=== PATIENT | female | born 1955 | race Caucasian/White ===

== ENCOUNTER 2023-03-05 23:55 | Inpatient (IN) | payer MEDICARE, OTHER, SELFPAY ==
[2023-03-05 20:14] VITALS: BP 139/34; BMI 41.9
[2023-03-05 20:15] VITALS: BP 139/34
--- NOTE | 2023-03-05 20:50 | ED.GENMED ---
History of Present Illness
General
Chief Complaint: Musculo-Skeletal Complaint
Source: patient and spouse
Exam Limitations: none
Time Seen by Provider: 03/05/23 20:12
Nursing documentation reviewed up to this point in time: agreed with
Travel History
Have you had any contact with someone who has COVID-19?: No
Do you have any symptoms of coronavirus? Fever > 100 degrees, chills, cough, shortness of breath, sore throat, loss of taste or smell, muscle aches, or headache?: No
History of Present Illness
History of Present Illness:
Patient status post right hip replacement last month, presents to ED secondary to progressively worsening right hip/leg pain with cramping sensation, after completing scheduled home physical therapy. Denies loss of sensation or weakness. Denies
direct trauma. Denies fall. At the recommendation of rehab department, patient proceeded to take her home pain medication without improvement in symptoms.
Past History
Past History
ED Past Medical History: GERD (Hiatal hernia ), HTN, Valvular disease (Heart murmur ), Hypothyroidism and Other (Questionable common bile duct stone status post ERCP done at [place] March 2006 )
ED Past Surgical History: Cardiac (Ventriculoseptal defect repair at age 6 , radiofrequency ablation 2004 ), Cholecystectomy (1986 ) and Gynecological (Hysterectomy 2005 )
Social History
Tobacco: Non-smoker
Alcohol: Occasional
Drug: None
Personal:
Living: with family
Employment: Employed
Review of Systems
Review of Systems
Allergies reviewed?: Yes
All Other Systems: ROS reviewed and negative except as documented in HPI and ROS
Constitutional: Reports no symptoms
: Reports no symptoms
Musculoskeletal: Reports other (hip/leg pain)
Skin: Reports no symptoms
Neurological: Reports no symptoms; Denies weakness or numbness
Phy Exam
Physical Exam
Physical Exam:
Physical Exam
General: moderate painful distress, not acutely ill. afebrile
Head: nc/at. eomi
Neck: supple. no meningeal signs.
Heart: s1/s2 regular rate and rhythm, no murmur. equal radial pulses.
Lungs: no acute respiratory distress. clear bilaterally
Abdomen: normal bowel sounds. not tender. rectal exam (RAMOS Singh, at bedside) : brown stool, heme negative.
Neuro: alert and oriented. no focal neurological deficits
Skin: no rash
Psychiatric: well kept. interactive and cooperative
Extremities: right hip: well healed surgical scar noted with diffuse tenderness to palpation. right knee: limited ROM due to pain, without gross deformity/erythema/swelling/ecchymosis
Course
Orders/Labs/Results
Orders:
Orders
03/05/23 20:47
CR Hip - RT w/wo Pel 2-3 Vw* Urgent
Comment:
Reason For Exam: right hip pain, s/p recent sx
Include a pelvis x-ray?: Yes
03/05/23 20:48
Fentanyl Citrate/Pf [Sublimaze] 50 mcg IV NOW STA
Ondansetron Injectable [Zofran] 4 mg IV NOW STA
03/05/23 20:59
Basic Metabolic Panel Urgent
Complete Blood Count/No Diff Urgent
Ferritin Urgent
Comment: ADD ON
Folate Urgent
Comment: ADD ON
Iron Urgent
Comment: ADD ON
Magnesium Urgent
Total Iron Binding Urgent
Comment: ADD ON
Vitamin B12 Urgent
Comment: ADD ON
03/05/23 21:49
Diazepam [Valium] 2 mg PO NOW STA
03/05/23 22:51
CR Knee- Right 4 Or More View* Urgent
Comment:
Reason For Exam: pain after therapy
03/05/23 22:56
Add On- LAB Urgent
Tests Added?: iron, tibc, ferritin, esr, CRP
03/05/23 22:57
Urinalysis Urgent
Date Specimen was Collected: 03/06/23
Time Specimen was Collected: 13:31
Urine Osmolality Random [Osmolality, Random Urine] Urgent
Date Specimen was Collected: 03/06/23
Time Specimen was Collected: 13:31
Urine Sodium Urgent
Date Specimen was Collected: 03/06/23
Time Specimen was Collected: 13:31
03/05/23 22:58
Acetaminophen [Tylenol] 1,000 mg PO NOW STA
03/05/23 22:59
Add On- LAB Routine
Tests Added?: TSH w/Reflex, folate, vit b12
03/05/23 23:05
Ondansetron Injectable [Zofran] 4 mg IV NOW STA
03/05/23 23:07
Type+Screen Urgent
03/05/23 23:25
Admit/Transfer Patient As Directed
Co-Sign Provider:
Level of Care: Inpatient admission
Assign to:: Medical/Surgical
Physician / Group: Shad
Diagnosis: Hyponatremia, Anemia, Severe Right Hip Pain
Reason for Hospitalization: sodium management, anemia work-up, pain control
Expected length of stay greater than two midnights?: Yes
ELOS- Estimated Length of Stay in days: 3
I certify the patient meets the requirements for IP care: Yes
03/05/23 23:28
Code Status As Directed
Resuscitation Status: Full Code
03/06/23 00:19
Acetaminophen [Tylenol] 650 mg PO Q4HPRN PRN
HYDROmorphone [Dilaudid] 0.5 mg IV Q3HPRN PRN
Ondansetron Injectable [Zofran] 4 mg IV Q6HPRN PRN
diazePAM [Valium Injection] 2 mg IV Q6HPRN PRN
03/06/23 00:19
ORTHOPEDIC CONSULT Routine
Consulting Provider: Ernie Fuentes
Was physician already notified: Yes
Activity As Directed
Activity Level: Out of Bed-Early Mobility
With Assistance
Hemetest Stools As Directed
Comment: Notify MD of any positive result; May Stop is negative x 3
I&O [Intake/ Output] As Directed
Frequency: q12h
Vital Signs As Directed
Frequency: Per unit guidelines
Warm Compress [Heat Application] As Directed
Apply heat therapy device to (location):: right thigh
Device Frequency setting:: 20 minute cycles
Device temperature setting:: Moderate: 100 F (38 C)
Weight As Directed
Frequency: Daily
Ot Eval And Treat Routine
Pt Eval And Treat Routine
Activity Level: Out of Bed-Early Mobility
With Assistance
03/06/23 Breakfast
Sodium, 2 Gram
At Your Request: Full Participation
Fluid Restriction: 1200 mL/day (40 oz)
03/06/23 06:04
Basic Metabolic Panel IN AM
Complete Blood Count/No Diff IN AM
Magnesium IN AM
03/06/23 07:00
Furosemide [Lasix] 20 mg PO DAILY@0700
Levothyroxine [Synthroid] 125 mcg PO DAILY@0700
03/06/23 08:00
Cyanocobalamin [Vitamin B-12] 1,000 mcg PO BID
Docusate Sodium [Colace] 100 mg PO BID
Sennosides [Senokot] 8.6 mg PO DAILY
03/06/23 10:00
Lisinopril [Zestril] 2.5 mg PO DAILY@1000
03/06/23 18:00
Cholecalciferol (Vitamin D3) [VITAMIN D3 (cholecalciferol)] 50 mcg PO QPM
Potassium Chloride [KCl] 20 meq PO QPM
Psyllium [Metamucil, Konsyl] 1 packet PO QPM
03/06/23 22:00
Aspirin Chewable [Low Strength Aspirin] 81 mg PO HS
Atorvastatin [Lipitor] 40 mg PO HS
Abnormal Lab Results
03/05/23 03/05/23
20:59 23:07
RBC 2.53 L 10^6/uL
(4.20-5.40)
Hgb 7.5 L g/dL
(12.0-16.0)
Hct 22.8 L %
(37.0-47.0)
MCHC 32.9 L g/dL
(33.0-37.0)
Sodium 125 L mmol/L
(135-145)
Chloride 95 L mmol/L
(98-107)
Carbon Dioxide 20 L mmol/L
(22-30)
Glucose 149 H mg/dl
(70-99)
Calcium 8.3 L mg/dl
(8.4-10.2)
% Saturation 12 L %
(20-50)
Vitamin B12 > 1000 H pg/ml
(282-931)
Folate > 20.0 H ng/ml
(2.76-20)
Crossmatch IS Only See Detail
03/05/23 20:59
03/05/23 20:59
Vital Signs
Initial and Last Documented VS:
Initial Vital Signs
Temp Pulse Resp BP Pulse Ox
97.7 F 85 28 139/34 100
03/05/23 20:14 03/05/23 20:14 03/05/23 20:14 03/05/23 20:14 03/05/23 20:14
Last Documented Vital Signs
Temp Pulse Resp BP Pulse Ox
98.0 F 81 18 136/70 99
03/08/23 07:00 03/08/23 09:26 03/08/23 07:00 03/08/23 09:26 03/08/23 10:20
MDM/Problems Addressed
MDM/Problems Addressed:
H/H noted along with hyponatremia, without gross evidence of bleeding. However, patient is on Eliquis. Will require further evaluation.
Despite multiple pain medication provided, patient with continual pain with spasm. Patient unable to weight-bear despite use of walker in ED. Patient will require further treatment and is unsafe to be discharged home at this time.
(orthopaedic surgery) notified via [employer].
*Critical Care Note
Total Time (30-74mins, 75-104mins- exclusive of procedures): Not Applicable
ED Attending Note
-
Portions of this chart may have been created with voice recognition software.� Occasional wrong word or��sound alike� substitutions may have occurred due to the inherent limitations of voice recognition software.
Discharge Plan
Departure
Patient Disposition: Admit
Date of Disposition: 03/05/23
Time of Disposition: 23:01
Presentation/result/management discussed w/ accepting MD/DO: Hospitalist
Discharge Problem:
Anemia, intractable leg pain
Interventions
Interventions:
*Risk Screen - Suicide Last Done: 03/05/23 20:14
*General Assessment Last Done: 03/05/23 20:14
*Neglect/Abuse Screening Last Done: 03/05/23 20:14
*ED COVID-19 Vaccine History Last Done: 03/05/23 20:14
ED-Musculoskeletal Assessment Last Done: 03/05/23 20:24
[2023-03-05 21:04] LABS: Hematocrit 22.8 % (37.0-47.0); Hemoglobin 7.5 g/dL (12.0-16.0); Mean Corp Hgb Conc. 32.9 g/dL (33.0-37.0); Mean Corpuscular Hgb 29.6 pg (27.0-31.0); Mean Corpuscular Volume 90.1 fL (81.0-99.0); Mean Platelet Volume 9.4 fL (7.4-10.4); Platelet Count 291 10^3/uL (130-400); Red Blood Cell Count 2.53 10^6/uL (4.20-5.40); Red Cell Dist. Width 13.7 % (11.5-14.5)
[2023-03-05] MEDS: SUBLIMAZE 50 MCG IV (21:05)
[2023-03-05] MEDS: ZOFRAN 4 MG IV ×2 (21:06→23:10)
[2023-03-05 21:31] LABS: Blood Urea Nitrogen 17 mg/dl (7-17); Calcium 8.3 mg/dl (8.4-10.2); Carbon Dioxide 20 mmol/L (22-30); Estimated Creatinine Clearance 116 ml/min; Glucose 149 mg/dl (70-99); Magnesium 1.8 mg/dl (1.6-2.3); eGFR > 60.00
[2023-03-05 21:42] LABS: Chloride 95 mmol/L (98-107); Potassium 3.7 mmol/L (3.5-5.1); Sodium 125 mmol/L (135-145)
[2023-03-05 21:48] VITALS: BP 130/58
[2023-03-05] MEDS: VALIUM 2 MG PO (21:53)
[2023-03-05 22:00] VITALS: BP 126/60
[2023-03-05 23:00] VITALS: BP 141/64
[2023-03-05] MEDS: TYLENOL 1000 MG PO (23:10)
[2023-03-05 23:35] LABS: Iron 42 ug/dl (37-170)
--- NOTE | 2023-03-05 23:42 | HPS.HSE ---
Addendum entered and electronically signed by Jose David Kulkarni DO 03/06/23 00:13:
Patient seen and examined independently. Agree with findings and plan as set forth by Idania Soriano PA-C.
Patient is a 67y F with PMH significant for ASCVD, A-Fib and hypertension who presents to ED complaining of RLE pain. Patient is s/p R GAYLE on 01/24/23. She has been recovering well and participating with PT at home. She denies any fall,
trauma, injury. She was seen by PT at home today. but denies any new exercises / activities. Later in the afternoon she developed sudden onset of sharp, stabbing pain in the R mid thigh extending distally to the knee. Pain was quite severe and
described as a 'spasm'. Patient was unable to control her pain and presented to the ED for evaluation.
Ass:
RLE Pain / Spasm
Blood Loss Anemia
Hyponatremia
ASCVD
Paroxysmal Atrial Fibrillation
Benign Hypertension
Hypothyroidism
ALTHEA on CPAP
Morbid Obesity due to excess calories
Plan:
Admit for further evaluation and treatment.
Imaging studies in the ED are unremarkable.
Symptoms seem c/w spasm of anterior thigh musculature.
Supportive care with pain control, muscle relaxants, heat applications, etc.
Ortho eval in the AM.
PT / OT evaluations.
Fluid restriction, pain control and continue Lasix for hyponatremia.
Follow for improvement.
Follow H&H for changes.
Hold Eliquis acutely. Continue ASA.
Check iron studies and consider iron infusion if warranted.
Original Note:
Family Physician
-
Family Physician: Freedom Connors
Chief Complaint
-
Right hip/thigh pain
History of Present Illness
Patient is a 67 female past medical history of CAD, A-fib, hypertension, hypothyroidism, osteoarthritis status post right total hip replacement on January 24 who presents with severe right hip pain. Patient reports she was doing quite well
following her recent surgery. Today she worked with physical therapy ambulating with a cane. She reports feeling well after surgery and then did some laundry. And then afternoon she developed right thigh pain radiating down to the knee. She
describes it as a spasm. She took 2 doses Dilaudid without any improvement in her symptoms which prompted her come to the emergency department for evaluation. Workup in the emergency department also revealed anemia as well as hyponatremia. In
regards to her anemia patient is maintained on Eliquis. She denies any black or bloody stools, and was noted be heme-negative in the emergency department. In regards to her hyponatremia patient appears to drink about 60 ounces of fluid per day.
Medical History
Past Medical History
Past Medical History: Reports Other
Additional Past Medical History:
Coronary Artery Disease s/p Stent
Paroxysmal Atrial Fibrillation
Essential Hypertension
Hyperlipidemia
Hypothyroidism
GERD
Obstructive Sleep Apnea
Past Surgical History: Reports Other
Additional Past Surgical History:
Bilateral Hip Replacements
Bilateral Knee Replacement
Left Shoulder Replacement
Right Lower Ext ORIF
Giant Cell Tumor Excision
Cholecystectomy
Hysterectomy
Social History
Tobacco: Non-smoker
Alcohol: Occasional
Personal:
Living: With Family ()
Family History
Family History: Not pertinent
Allergies / Home Medications
Allergies reflects when Allergies were last updated in [facility].
Home Medications with original date entered in [facility]
Allergy/Medication List:
Allergies
Allergy/AdvReac Type Severity Reaction Status Date / Time
oxycodone Allergy Nausea Verified 01/24/23 08:10
Home Medications
levothyroxine 125 mcg tablet 125 mcg PO DAILY@0700 Thyroid 08/27/11
psyllium husk (aspartame) 3.4 gram oral powder packet (Metamucil Fiber Singles) 1 packet PO QPM Constipation 01/11/16
atorvastatin 40 mg tablet 40 mg PO HS High cholesterol 05/19/21
cholecalciferol (vitamin D3) 50 mcg (2,000 unit) tablet (Vitamin D3) 50 mcg PO QPM Supplement ##0 05/19/21
cyanocobalamin (vitamin B-12) 1,000 mcg tablet 1,000 mcg PO BID Supplement 05/19/21
multivitamin 1 ea PO DAILY Supplement 05/19/21
potassium chloride 20 mEq tablet,extended release(part/cryst) 20 meq PO QPM Electrolyte Repletion 09/28/21
aspirin 81 mg capsule 81 mg PO HS Blood clot prevention/tx 10/06/21
docusate sodium 100 mg capsule 100 mg PO BID #30 caps 01/25/23
hydromorphone 2 mg tablet 2 mg PO Q4H PRN moderate-severe pain #30 tabs 01/25/23
apixaban 5 mg tablet (Eliquis) 5 mg PO BID@0700,1800 03/05/23
furosemide 20 mg tablet 20 mg PO DAILY@0700 Fluid Retention/Swelling 03/05/23
lisinopril 2.5 mg tablet 2.5 mg PO DAILY@1000 03/05/23
sennosides 8.6 mg tablet (Senna Lax) 8.6 mg PO DAILY 03/05/23
Review of Systems
-
A 12 point ROS was completed and negative except as noted: Yes
Constitutional: Denies Fever or Chills
Respiratory: Denies Cough or Trouble Breathing
Cardiac: Denies Chest Pain or Palpitations
Abdomen/GI: Reports Nausea; Denies Abdominal Pain
Physical Exam
Vital Signs
Vital Signs
Temp Pulse Resp BP Pulse Ox
97.7 F 70 17 141/64 99
03/05/23 20:14 03/05/23 23:15 03/05/23 23:15 03/05/23 23:00 03/05/23 22:45
Physical Exam
General: Comfortable and Conversant
HEENT: Anicteric and Moist mucous membranes
Respiratory: Clear and Non Labored Respirations
Cardiac: S1/S2 and Regular Rhythm
GI: Soft, Non Tender and Non Distended
Rectal: Hem Negative (Per ED Provider)
Musculoskeletal: No Clubbing, No Cyanosis and Other (Right Hip Incision appear clean, dry and intact)
Skin: Warm, Dry and Other (No bruising)
Neuro: Awake, Alert, Oriented and Nonfocal/grossly intact
Laboratory Results
-
03/05/23 20:59
03/05/23 20:59
Data Reviewed
-
Diagnostic Radiology: Report Reviewed by me
Lab Data: Labs Reviewed by me
Impression/Plan
-
Severe Right Hip Pain, possible muscle spasm
-Consult Orthopedics
-Consult PT/OT
-Continue Valium prn muscle spasms
-Continue Dilaudid prn severe pain
Hyponatremia, suspect SIADH related to pain
-Check urine sodium and urine osmolality
-Start fluid restriction
Anemia, suspect iron deficiency following recent hip surgery
-Check iron studies
-Continue to heme-test stools
Coronary Artery Disease s/p Stent
-Continue aspirin
Paroxysmal Atrial Fibrillation
-Hold Eliquis is setting of anemia
Essential Hypertension
-continue lisinopril and furosemide
Hyperlipidemia
-Continue atorvastatin
Hypothyroidism
-Check TSH
-Continue levothyroxine
Obstructive Sleep Apnea
-Continue CPAP
Morbid Obesity Due To Excess Calories
-Affects all affects of care
DVT proph: SCDs
Code Status: Full Code
[2023-03-05 23:44] LABS: Percent Saturation 12 % (20-50); Total Iron Binding Capacity 344 ug/dl (265-497)
[2023-03-06] VITALS (9 sets, daily range): BP systolic 116–143; BP diastolic 48–67; BMI 41.9; BMI 41.3
[2023-03-06 03:06] LABS: Ferritin 57.4 ng/ml (11.1-264.0)
--- NOTE | 2023-03-06 03:06 | EDRN ---
Report received, patient sleeping at this time, call [facility] in reach.
[2023-03-06 03:37] LABS: Folate > 20.0 ng/ml (2.76-20); Vitamin B12 > 1000 pg/ml (239-931)
--- NOTE | 2023-03-06 03:45 | EDRN ---
Patient ambulated with use of walker to the restroom, patient in a lot of pain with ambulation, tearful during transfer to bathroom, she was able to slowly ambulate without difficulty, just with a lot of pain, offered more pain medication once back
in bed, patient reports she feels better once in bed and wanted to hold off for now, informed patient to call if she changes her mind and wants some sort of pain control, no other needs at this time, call [facility] in reach.
--- NOTE | 2023-03-06 06:14 | W.PN.UPDATE ---
Update Note
Progress Note Update
Patient seen and evaluated by orthopedic surgery this morning. Patient reports that she began to experience severe right hip pain, described as spasming, yesterday afternoon around 3 PM. Patient underwent a right total hip replacement performed on
01/24/[address] Fuentes. She had physical therapy yesterday around 8 AM, ambulating with a cane. Prior to the onset of right hip pain and spasming, she reports that she was progressing well with her rehab. Her pain is localized to the right
lateral hip region radiating distally to her right knee. She took 2 doses of Dilaudid without any improvement, at which point she presented to the ED. She denies any injury or traumatic event. She denies any specific back pain. She denies any
numbness or tingling in her right lower extremity. She denies any specific groin pain or right knee pain. Her right knee was replaced in 2018 at [facility]. She is unable to recall the name of the physician, however does describe it was a bone
oncologist. She denies any instability or swelling about the right knee. On encounter this morning, the patient does report that her spasms have significantly improved and are controlled at rest. With movement, she does report increased pain. She
denies any fevers, chills or night sweats. X-rays of the right hip and right knee were obtained. X-rays of the right hip are unremarkable. X-rays of the right knee without findings for acute fracture or dislocation. Patient is afebrile. WBC
within normal limits. Will obtain inflammatory markers including ESR and CRP. Full orthopedic consult note pending.
Discussed with Dr. Fuentes. ESR 19. CRP 32. At this time, continue supportive care with pain control, muscle relaxers, heat applications, etc. Will order CT Scan of right hip w/o contrast for further evaluation. Continue treatment per primary team.
As long as CT is negative, discharge per medicine and case management from orthopedic standpoint.
[2023-03-06] MEDS: DILAUDID 0.5 MG IV ×2 (06:15→09:50)
[2023-03-06 06:25] LABS: Mean Corp Hgb Conc. 33.2 g/dL (33.0-37.0); Mean Corpuscular Volume 90.4 fL (81.0-99.0); Mean Platelet Volume 9.5 fL (7.4-10.4); Platelet Count 290 10^3/uL (130-400); Red Cell Dist. Width 13.7 % (11.5-14.5); White Blood Cell Count 8.4 10^3/uL (4.8-10.8)
[2023-03-06 06:42] LABS: Hematocrit 20.8 % (37.0-47.0); Hemoglobin 6.9 g/dL (12.0-16.0)
[2023-03-06 07:06] LABS: Erythrocyte Sed Rate 19 mm/hour (0-20)
[2023-03-06 07:18] LABS: Blood Urea Nitrogen 17 mg/dl (7-17); Calcium 8.6 mg/dl (8.4-10.2); Carbon Dioxide 23 mmol/L (22-30); Chloride 98 mmol/L (98-107); Estimated Creatinine Clearance 116 ml/min; Glucose 117 mg/dl (70-99); Magnesium 2.1 mg/dl (1.6-2.3); Sodium 129 mmol/L (135-145); eGFR > 60.00
--- NOTE | 2023-03-06 07:44 | CON.ORTHO ---
Consultation
-
Date/Time Consultation Requested: 03/06/2023 @ 00:19
Date/Time Consultation Performed: 03/06/2023 @ 6:00
Requesting Provider: Idania Soriano PA-C
Performing Provider: Dez Kevin PA-C for Dr. Ernie Fuentes
Reason for Consultation: Right Hip/Thigh Pain
Consultation - Orthopedics
History
HPI: The patient is a 67-year-old female with a past medical history significant for CAD, A-fib on Eliquis 5 mg BID, hypertension, hypothyroidism, osteoarthritis s/p right total hip replacement performed on 01/24/[address] Fuentes who presented to
[facility] with severe right hip pain. Patient denies any falls, traumatic injuries, or triggering events. Patient reports that she was doing well following her recent orthopedic surgery and was making appropriate
improvements with physical therapy. She states that she worked with physical therapy yesterday around 8 AM, ambulating with a cane. Around 3 PM, patient reports onset of right hip pain, localized to the anterior and lateral hip/thigh, which
radiated distally towards her right knee. She describes symptoms as a 'spasm,' worse with any movement. She took 2 doses of Dilaudid without significant improvement in her symptoms, which prompted her to report to [facility] ED for further evaluation.
X-rays of the right hip and right knee were obtained, and were unremarkable. Right knee was replaced in 2018 at [place]. She is unable to recall the name of the physician, however was informed that it was an Orthopedic Oncologist. She denies
any back pain or any numbness or tingling in her right lower extremity. She denies any specific groin pain or knee pain. Since coming to the ED, she reports that the spasms have improved and are controlled at rest when she is lying. With movement,
she does report increased pain. She denies any fevers, chills or night sweats. She denies any overt incisional concerns. She denies any incisional drainage. Workup in the ED also revealed anemia as well as hyponatremia. Orthopedic surgery was
consulted regarding management of her right hip/thigh pain.
PAST MEDICAL HISTORY: Coronary Artery Disease s/p stent, Paroxysmal Atrial Fibrillation, Essential Hypertension, Hyperlipidemia, Hypothyroidism, GERD, Sleep apnea on CPAP.
PAST SURGICAL HISTORY: Bilateral hip replacements (R GAYLE 01/24/[address] Fuentes), Bilateral knee replacements, Left shoulder replacement, Right lower extremity ORIF, Giant cell tumor excision, Cholecystectomy, Hysterectomy.
SOCIAL HISTORY: Reports occasional alcohol use. Denies any tobacco use, illicit or recreational drug use. Lives at home with her .
FAMILY HISTORY: Non-contributory.
REVIEW OF SYSTEMS: 12-point review of systems obtained and negative except those mentioned in the HPI.
Allergies / Home Medications
Allergy/AdvReac Type Severity Reaction Status Date / Time
oxycodone Allergy Nausea Verified 01/24/23 08:10
Medication Instructions Recorded
levothyroxine 125 mcg tablet 125 mcg PO DAILY@0700 Thyroid 08/27/11
psyllium husk (aspartame) 3.4 gram 1 packet PO QPM Constipation 01/11/16
oral powder packet (Metamucil
Fiber Singles)
atorvastatin 40 mg tablet 40 mg PO HS High cholesterol 05/19/21
cholecalciferol (vitamin D3) 50 50 mcg PO QPM Supplement ##0 05/19/21
mcg (2,000 unit) tablet (Vitamin
D3)
cyanocobalamin (vitamin B-12) 1,000 mcg PO BID Supplement 05/19/21
1,000 mcg tablet
multivitamin 1 ea PO DAILY Supplement 05/19/21
potassium chloride 20 mEq 20 meq PO QPM Electrolyte Repletion 09/28/21
tablet,extended release(part/cryst)
aspirin 81 mg capsule 81 mg PO HS Blood clot 10/06/21
prevention/tx
docusate sodium 100 mg capsule 100 mg PO BID #30 caps 01/25/23
hydromorphone 2 mg tablet 2 mg PO Q4H PRN moderate-severe 01/25/23
pain #30 tabs
apixaban 5 mg tablet (Eliquis) 5 mg PO BID@0700,1800 03/05/23
furosemide 20 mg tablet 20 mg PO DAILY@0700 Fluid 03/05/23
Retention/Swelling
lisinopril 2.5 mg tablet 2.5 mg PO DAILY@1000 03/05/23
sennosides 8.6 mg tablet (Senna 8.6 mg PO DAILY 03/05/23
Lax)
Vital Signs / Lab Results
Temp Pulse Resp BP Pulse Ox
97.8 F 75 18 141/48 99
03/06/23 00:36 03/06/23 00:36 03/05/23 23:20 03/06/23 03:42 03/06/23 03:42
03/06/23 06:04
03/06/23 06:04
Pertinent labs:
ESR: 19
CRP: 32
Hgb: 6.9
RADIOGRAPHIC FINDINGS:
CR Hip - RT w/wo Pel 2-3 Vw was obtained at [facility] on 03/05/2023 and was made available for my review today. Findings: Bilateral total hip arthroplasty hardware appears intact and well-positioned. Both femoral prosthesis are
transfixed by cerclage wires. No acute fracture or dislocation. The bony pelvis is intact. Chronic degenerative changes of the lower lumbar spine and symphysis pubis. Impression: 1. No acute fracture or dislocation. 2. Intact bilateral total
hip arthroplasties without radiographic evidence for complication.
CR Knee - Right 4 or More Vw was obtained at [facility] on 03/05/2023 and was made available for my review today. Findings: A three-part right knee prosthetic is identified, components in expected position. No abnormal soft tissue
calcification seen. No displaced fracture or dislocation is appreciated. Small suprapatellar joint effusion. No significant periosteal reaction. Impression: Small suprapatellar joint effusion. No fracture or dislocation of the prosthetic.
CT Lower Ext w/o IV contrast was obtained at [facility] on 03/06/2023 and was made available for my review today. Findings: Patient is post bilateral total hip replacement as seen on recent prior radiographs. There are artifacts related
to the prostheses. Bilaterally, femoral and acetabular portions of the prosthesis are in expected position without abnormal prosthetic lucency. There is oblique predominantly vertically oriented fracture through the right iliac bone along the
posterior, superior aspect of the acetabular cup. Fracture is nondisplaced and there is some apparent mild callus formation compatible with subacute fracture. There is cortical irregularity along the ischial spine on the right which probably
represents fracture. In addition to this, there is fracture is nondisplaced along the anterior right acetabulum. There is more conspicuous on the coronal reformat. This fracture shows some sclerotic changes also suggesting subacute fracture. No
other acute fractures are identified. Pubic symphysis is congruent. The sacroiliac joints are maintained. There is L5 probable spinal listhesis with grade 1 spondylolisthesis L5 on S1. Visible bowel sounds and no signs of obstruction. Probably
just are not well-seen secondary to artifact. Within the limitations, no acute abnormality of the urinary bladder is identified. Uterus is not clearly seen. No abnormality of the rectum is identified. No free fluid is seen within the pelvis.
Impression: Subacute fractures along the anterior right acetabulum and posterior, superior right acetabulum as described. Probable of acute fracture of the right ischial spine. CT scan was also reviewed by Dr. Fuentes.
PHYSICAL EXAM:
General: Well-developed, well-nourished male in no acute distress. AAO x 3.
HEENT: NCAT, sclera anicteric, normal conversational hearing.
Heart: No JVD.
Lungs: Normal work of breathing on room air.
MSK: Physical examination of the right lower extremity with attention to the right hip reveals a well-approximated healed surgical incision over the lateral hip. There is some scab formation noted about the proximal aspect of the incision. There
is no erythema or drainage. There is no ecchymosis. No significant warmth in comparison to the contralateral side. There is tenderness to palpation over the soft tissues about the anterior thigh, specifically in the region of the adductor and
quadriceps musculature. No significant reproducible tenderness to palpation over the lateral hip. No reproducible tenderness to palpation about the right knee. There is a well-healed surgical incision overlying the right knee with no erythema,
warmth, or ecchymosis. There is increased pain to the right hip with logrolling maneuver. Mild pain reproduced only to the right hip with gentle passive knee range of motion. Further range of motion of the right hip unable to be performed
secondary to muscular spasming and pain. Patient is able to demonstrate active range of motion of the right ankle with plantarflexion and dorsiflexion. EHL intact. Patient able to wiggle her toes. Sensation is intact to light touch throughout
the right lower extremity. Calf is soft and nontender to palpation. Patient is neurovascularly intact about the right lower extremity.
Assessment / Plan
ASSESSMENT: 67-year-old female with right hip/thigh pain/muscular spasms. History of recent right GAYLE performed on 01/24/2023.
PLAN: CT Scan of the right hip was reviewed with Dr. Fuentes. Regarding the findings, it is unclear if the mechanism would have been a fracture during wedging in of the acetabular component or a stress fracture mechanism from activity
post-operatively, however would favor possible stress mechanism considering she was progressing well without increased pain until yesterday afternoon. Regardless, it would not change treatment. Patient also has significant anemia, not obviously
explainable on the CT scan of the hip, and her muscular spasms may be secondary to this. The patient may continue weightbearing as tolerated through the right lower extremity with assistance. Continue treatment and supportive care with pain
control, muscle relaxers, heat applications, etc. per the primary team. Orthopedic surgery will continue to follow along at this time.
[2023-03-06] MEDS: COLACE 100 MG PO ×2 (07:45→20:51)
[2023-03-06] MEDS: VITAMIN B-12 1000 MCG PO ×2 (07:45→20:51)
[2023-03-06] MEDS: LASIX 20 MG PO (07:45)
[2023-03-06] MEDS: SENOKOT 8.59999999999999964 MG PO (07:45)
--- NOTE | 2023-03-06 08:55 | PTCARENOTE ---
pt aaox3. states pain in right hip and down leg when moving. at rest pt is comfortable. room air. breath sounds clear. right upper leg +1 swelling. right hip wound alex clean.
--- NOTE | 2023-03-06 09:02 | W.PN.HOSP.TC ---
Today's Communication/Plan
-
see outlined plan
Assessment / Plan
Assessment / Plan
Assessment:
Severe Right Hip Pain, possible muscle spasm
- Orthopedics following
- Xray imaging negative, CT pending
- maximize Tylenol to 1g TID, make Flexeril available BID prn
- PO Dilaudid for severe pain (nausea documented with Oxycodone)
- would try to limit/avoid Valium moving forward
- PT/OT
Hyponatremia, suspect SIADH related to pain
- await Urine Osm, Serum Osm, Urine Na
- continue OFR
- resume Lasix in 24 hours
Acute blood loss anemia, and iron deficiency following recent hip surgery
- heme-test stools, no historical report of GI bleed
- 1 unit PRBCs ordered
- later will plan iron therapy
Coronary Artery Disease s/p Stent
- continue aspirin
Paroxysmal Atrial Fibrillation
- hold Eliquis is setting of anemia
Essential Hypertension
- continue lisinopril and furosemide
Hyperlipidemia
- continue atorvastatin
Hypothyroidism
- check TSH
- continue levothyroxine
Obstructive Sleep Apnea
- continue CPAP
Morbid Obesity Due To Excess Calories
- affects all affects of care
DVT proph: SCDs
Code Status: Full Code
Anticipated Discharge: 24 - 48 hours
Subjective/Interval History
-
Date of Service: March 06, 2023
she reports hip spasms are improving
pain minimal
no other complaints, no fever/chills
Anemic to Hb 6.9, no evidence of bleeding noted by patient, no prior anemia hx
Objective Data
-
Labs:
Laboratory Results
03/05/23 03/06/23
20:59 06:04
WBC 10.0 8.4
Hgb 7.5 L 6.9 L*
Hct 22.8 L 20.8 L*
Plt Count 291 290
Sodium 125 L 129 L
Potassium 3.7 4.0
Chloride 95 L 98
Carbon Dioxide 20 L 23
BUN 17 17
Creatinine 0.6 0.6
Glucose 149 H 117 H
Calcium 8.3 L 8.6
Vital Signs:
Vital Signs
Temp Pulse Resp BP Pulse Ox
98.0 F 72 18 116/49 97
03/06/23 08:06 03/06/23 08:06 03/06/23 08:06 03/06/23 08:06 03/06/23 08:06
Physical Exam
-
General: No Apparent Distress
HEENT: Normocephalic and Atraumatic
Respiratory: Negative Wheezes
Cardiac: Regular Rhythm and S1/S2
GI: Soft
Genito-urinary: No Costovertebral Tender
Musculoskeletal: No Edema and Other (R hip incision c/d/i)
Neuro: AO x 3
Hematologic / Lymphatic: No Lymphadenopathy
Psych: Calm
Data Reviewed
-
Total Time Spent with Patient (in minutes): 47
Labs: Labs Reviewed by me
--- NOTE | 2023-03-06 09:17 | PTCARENOTE ---
morning labs reported to dr lynn. prbc ordered.
--- NOTE | 2023-03-06 09:23 | VNURNOTE ---
Patient is current with [facility] since 01/26 w/SN/PT, will monitor progress and plan at discharge.
[2023-03-06] MEDS: ZOFRAN 4 MG IV ×2 (09:49→16:19)
[2023-03-06] MEDS: TYLENOL PO (10:47)
[2023-03-06] MEDS: ZESTRIL PO (10:47)
[2023-03-06] MEDS: SYNTHROID PO (10:47)
--- NOTE | 2023-03-06 10:50 | PTCARENOTE ---
pt states 10/10 pain in right hip after ct scan transport and feeling nauseous. Dilaudid and zofran given. pt did vomit shortly after. and does not want to eat or take pills. after event prbc started
--- NOTE | 2023-03-06 11:27 | W.PN.UPDATE ---
Update Note
Progress Note Update
I reviewed both the images and report of her CT scan showing acetabular fracture. Not clear if the mechanism would have been a fracture during wedging in of the acetabular component of the total hip or a stress fracture mechanism from activity
postop but that information wouldn't change managment. HEr acetabular shell is well fixed appering, secured with screws, and protects any of these fx's from displacement. There is sign of callus formation. She can continue weightbearing as
tolerated through the right lower extremity. Unclear what the source is over her significant anemia, I do not see an explanation on the ct with the hip.
[2023-03-06 13:49] LABS: Urine Albumin Negative (Neg - Trace); Urine Bilirubin Negative (Negative); Urine Character Clear (Clear); Urine Color Yellow; Urine Glucose Negative (Negative); Urine Ketone Negative (Negative); Urine Leukocyte Trace (Negative); Urine Nitrite Negative (Negative); Urine Occult Blood Negative (Negative); Urine Specific Gravity 1.025 (<1.030); Urine Urobilinogen Negative (Neg - 1+)
[2023-03-06 14:24] LABS: Urine Mucus Moderate
[2023-03-06 14:25] LABS: Urine Bacteria Few (Negative); Urine Red Blood Cell 0-2 /HPF (0-2)
[2023-03-06 14:36] LABS: Osmolality Urine 441 mOsm/kg (300-900)
[2023-03-06 15:20] LABS: Osmolality Serum 268 mOsm/kg (275-300)
--- NOTE | 2023-03-06 15:23 | PTCARENOTE ---
report sent to floor pt transferred to 4th floor with belongings cell phone and home cpap.
[2023-03-06 16:12] LABS: Urine Sodium 7 mmol/L (30-90)
[2023-03-06] MEDS: TYLENOL 1000 MG PO ×2 (16:18→20:53)
[2023-03-06] MEDS: KCL 20 MEQ PO (17:39)
[2023-03-06] MEDS: VITAMIN D3 (cholecalciferol) 50 MCG PO (17:39)
[2023-03-06] MEDS: METAMUCIL, KONSYL 1 PACKET PO (17:40)
--- NOTE | 2023-03-06 19:14 | PTCARENOTE ---
Recieved Pt form ED. AAOx4. Assisted with transfer from stretcher to bed. Oriented to the unit.
[2023-03-06] MEDS: LIPITOR 40 MG PO (20:52)
[2023-03-06] MEDS: LOW STRENGTH ASPIRIN 81 MG PO (20:53)
[2023-03-07 06:00] VITALS: BMI 40.1
[2023-03-07] MEDS: SYNTHROID 125 MCG PO (06:26)
[2023-03-07] MEDS: LASIX 20 MG PO (06:26)
[2023-03-07 08:00] LABS: Hematocrit 24.5 % (37.0-47.0); Mean Corp Hgb Conc. 33.9 g/dL (33.0-37.0); Mean Corpuscular Hgb 30.6 pg (27.0-31.0); Mean Corpuscular Volume 90.4 fL (81.0-99.0); Mean Platelet Volume 9.6 fL (7.4-10.4); Platelet Count 296 10^3/uL (130-400); Red Blood Cell Count 2.71 10^6/uL (4.20-5.40); Red Cell Dist. Width 14.6 % (11.5-14.5); White Blood Cell Count 7.1 10^3/uL (4.8-10.8)
[2023-03-07 08:22] LABS: Hemoglobin 8.3 g/dL (12.0-16.0)
[2023-03-07 08:31] VITALS: BP 133/62
[2023-03-07 08:40] VITALS: BP 124/61; PULSE 79; O2SAT 97
--- NOTE | 2023-03-07 08:48 | W.PN.HOSP.TC ---
Today's Communication/Plan
-
PT/OT
resume Eliquis/Lasix
trial oxycodone
Assessment / Plan
Assessment / Plan
Assessment:
Severe Right Hip Pain, possible muscle spasm
- Orthopedics following
- Xray imaging negative
- maximize Tylenol to 1g TID, make Flexeril available BID prn
- re-attempt PO oxycodone
- would try to limit/avoid Dilaudid/Valium moving forward
- PT/OT recs pending
Subacute fractures along anterior right acetabulum and posterior, superior right acetabulum as described. Probable of acute fracture of the right ischial spine.
- non-operative mgmt per orthopedics
- WBAT RLE
Hyponatremia, suspect SIADH related to pain
- continue OFR
- resume Lasix today
Acute blood loss anemia, and iron deficiency following recent hip surgery
- heme-test stools, no historical report of GI bleed
- s/p 1 unit PRBCs. Hb 8.3
- IV iron ordered; with PO iron at dc and PCP f/u in 1-2 months with repeat levels
Coronary Artery Disease s/p Stent
- continue aspirin
Paroxysmal Atrial Fibrillation
- resume Eliquis
Essential Hypertension
- continue lisinopril and furosemide
Hyperlipidemia
- continue atorvastatin
Hypothyroidism
- check TSH
- continue levothyroxine
Obstructive Sleep Apnea
- continue CPAP
Morbid Obesity Due To Excess Calories
- affects all affects of care
DVT proph: Eliquis
Code Status: Full Code
Anticipated Discharge: 24 - 48 hours
Subjective/Interval History
-
Date of Service: March 07, 2023
pain improving
denies any new complaints
will attempt Oxycodone instead of Dilaudid
Objective Data
-
Labs:
Laboratory Results
03/07/23
07:06
WBC 7.1
Hgb 8.3 L D
Hct 24.5 L
Plt Count 296
Sodium Pending
Potassium Pending
Chloride Pending
Carbon Dioxide Pending
BUN Pending
Creatinine Pending
Glucose Pending
Calcium Pending
Vital Signs:
Vital Signs
Temp Pulse Resp BP Pulse Ox
98.1 F 81 18 133/62 96
03/07/23 08:31 03/07/23 08:31 03/07/23 08:31 03/07/23 08:31 03/07/23 08:31
I&O
03/06/23 03/07/23 03/08/23
06:59 06:59 06:59
Intake Total 730 / 730
Balance 730 / 730
Physical Exam
-
General: No Apparent Distress
HEENT: Normocephalic and Atraumatic
Respiratory: Negative Wheezes
Cardiac: Regular Rhythm
GI: Soft
Genito-urinary: No Costovertebral Tender
Musculoskeletal: No Edema
Neuro: AO x 3
Hematologic / Lymphatic: No Lymphadenopathy
Psych: Calm
Data Reviewed
-
Total Time Spent with Patient (in minutes): 40
Labs: Labs Reviewed by me
[2023-03-07 09:03] LABS: Blood Urea Nitrogen 14 mg/dl (7-17); Calcium 8.7 mg/dl (8.4-10.2); Carbon Dioxide 25 mmol/L (22-30); Chloride 102 mmol/L (98-107); Estimated Creatinine Clearance 97 ml/min; Glucose 97 mg/dl (70-99); Potassium 4.1 mmol/L (3.5-5.1); Sodium 134 mmol/L (135-145); eGFR > 60.00
[2023-03-07 09:15] VITALS: BP 124/61; PULSE 79; O2SAT 97
[2023-03-07] MEDS: TYLENOL 1000 MG PO ×3 (09:57→21:29)
[2023-03-07] MEDS: COLACE 100 MG PO ×2 (09:57→20:28)
[2023-03-07] MEDS: VITAMIN B-12 1000 MCG PO ×2 (09:57→20:29)
[2023-03-07] MEDS: ZESTRIL 2.5 MG PO (10:00)
[2023-03-07] MEDS: SENOKOT PO (10:05)
--- NOTE | 2023-03-07 10:05 | W.PN.UPDATE ---
Update Note
Progress Note Update
Per Dr. Fuentes, patient may continue weight bearing as tolerated. She may utilize assistive device such as walker or cane to offload weight from the joint. Orthopedics will follow peripherally. We will see her on an outpatient basis as scheduled.
Continue pain control per primary. Discharge once medically stable.
[2023-03-07] MEDS: FERRLECIT 110 MG IV (14:32)
[2023-03-07 16:27] VITALS: BP 131/59
--- NOTE | 2023-03-07 17:13 | CM ---
CM following re: d/c planning
Chart reviewed
CM met with the patient at bedside; IA completed
Pt states she & her spouse reside in a [place] with 1STE
[employer]ACH[employer] patient reports independence at baseline
Pt has no previous SNF hx, is current with [facility] and has the follow DME: a r/w, w/c. spc, & hip kit
Pt has prescription coverage and rx's are filled at [facility] on [address]
Pt PCP-[facility]
Per PT/OT evals. post d/c recommendation wavers btwn home with PT vs SNF
CM will continue to monitor patient progress and assist with continued needs at d/c as indicated
PLAN; d/c home with PIPPA [facility] vs SNF
[2023-03-07] MEDS: VITAMIN D3 (cholecalciferol) 50 MCG PO (17:19)
[2023-03-07] MEDS: METAMUCIL, KONSYL 1 PACKET PO (17:19)
[2023-03-07] MEDS: ELIQUIS 5 MG PO (17:19)
[2023-03-07] MEDS: KCL 20 MEQ PO (17:20)
[2023-03-07] MEDS: LOW STRENGTH ASPIRIN 81 MG PO (20:29)
[2023-03-07] MEDS: SENOKOT 8.59999999999999964 MG PO (20:29)
[2023-03-07] MEDS: LIPITOR 40 MG PO (20:29)
[2023-03-07 23:47] VITALS: BP 121/69
[2023-03-08 04:49] VITALS: BMI 40.1
[2023-03-08] MEDS: ELIQUIS 5 MG PO (06:10)
[2023-03-08] MEDS: SYNTHROID 125 MCG PO (06:10)
[2023-03-08] MEDS: LASIX 20 MG PO (06:10)
[2023-03-08 07:00] VITALS: BP 136/70
[2023-03-08 08:21] LABS: Hematocrit 27.3 % (37.0-47.0); Hemoglobin 8.8 g/dL (12.0-16.0)
[2023-03-08 08:54] LABS: Blood Urea Nitrogen 17 mg/dl (7-17); Carbon Dioxide 27 mmol/L (22-30); Chloride 103 mmol/L (98-107); Estimated Creatinine Clearance 97 ml/min; Glucose 107 mg/dl (70-99); Sodium 135 mmol/L (135-145); eGFR > 60.00
--- NOTE | 2023-03-08 09:06 | W.PN.HOSP.TC ---
Today's Communication/Plan
-
repeat therapy evaluations with potential DC later if cleared for home
Assessment / Plan
Assessment / Plan
Assessment:
Severe Right Hip Pain, possible muscle spasm
- Orthopedics following
- Xray imaging negative
- maximize Tylenol to 1g TID, make Flexeril available BID prn
- Prn Oxycodone and Prn Tramadol available
- would try to limit/avoid Dilaudid/Valium moving forward
- PT/OT - home vs SNF pending evals
Subacute fractures along anterior right acetabulum and posterior, superior right acetabulum as described. Probable of acute fracture of the right ischial spine.
- non-operative mgmt per orthopedics
- WBAT RLE
Hyponatremia, suspect SIADH related to pain
- continue Lasix
- continue OFR
Acute blood loss anemia, and iron deficiency following recent hip surgery
- heme-test stools, no historical report of GI bleed
- s/p 1 unit PRBCs. Hb 8.8
- IV iron ordered; with PO iron at dc and PCP f/u in 1-2 months with repeat levels
Coronary Artery Disease s/p Stent
- continue aspirin
Paroxysmal Atrial Fibrillation
- resume Eliquis
Essential Hypertension
- continue lisinopril and furosemide
Hyperlipidemia
- continue atorvastatin
Hypothyroidism
- check TSH
- continue levothyroxine
Obstructive Sleep Apnea
- continue CPAP
Morbid Obesity Due To Excess Calories
- affects all affects of care
DVT proph: Eliquis
Code Status: Full Code
Anticipated Discharge: Within 24 hours
Subjective/Interval History
-
Date of Service: March 08, 2023
denies any significant pain while using Tylenol but admits to not mobilizing much after yesterdays therapy session
Objective Data
-
Labs:
Laboratory Results
03/08/23 03/08/23
07:53 07:54
Hgb 8.8 L
Hct 27.3 L
Sodium 135
Potassium 4.0
Chloride 103
Carbon Dioxide 27
BUN 17
Creatinine 0.7
Glucose 107 H
Calcium 9.0
Vital Signs:
Vital Signs
Temp Pulse Resp BP Pulse Ox
98.0 F 81 18 136/70 99
03/08/23 07:00 03/08/23 07:00 03/08/23 07:00 03/08/23 07:00 03/08/23 07:00
I&O
03/07/23 03/08/23 03/09/23
06:59 06:59 06:59
Intake Total 730 / 730 480 / 480
Balance 730 / 730 480 / 480
Physical Exam
-
General: No Apparent Distress
HEENT: Normocephalic and Atraumatic
Respiratory: Negative Wheezes
Cardiac: Regular Rhythm
GI: Soft
Genito-urinary: No Costovertebral Tender
Musculoskeletal: No Edema
Neuro: AO x 3
Hematologic / Lymphatic: No Lymphadenopathy
Psych: Calm
Data Reviewed
-
Total Time Spent with Patient (in minutes): 45
Labs: Labs Reviewed by me
[2023-03-08] MEDS: VITAMIN B-12 1000 MCG PO (09:26)
[2023-03-08] MEDS: COLACE 100 MG PO (09:26)
[2023-03-08] MEDS: ZESTRIL 2.5 MG PO (09:26)
[2023-03-08] MEDS: SENOKOT 8.59999999999999964 MG PO (09:26)
[2023-03-08] MEDS: TYLENOL 1000 MG PO ×2 (09:26→16:14)
[2023-03-08] MEDS: ULTRAM 50 MG PO (12:01)
[2023-03-08 13:01] VITALS: BP 121/55; PULSE 78
[2023-03-08] MEDS: FLEXERIL 5 MG PO (13:42)
[2023-03-08] MEDS: FERRLECIT 110 MG IV (13:43)
--- NOTE | 2023-03-08 13:54 | W.DS.TRANS ---
DC Summary - [employer]
-
Discharge Instructions:
Discharge Diagnosis/Procedures hip pain, muscle spasms, subacute pelvic
fractures
Diet Regular,Restrict fluids to 48 oz
Additional Diets restrict fluids for 1 week, this will help
stabilize sodium levels which can drop in
setting of fractures and acute pain
Activity As tolerated
Bathing Restrictions None
Other Services VN,PT,OT
Instructions:
Stand-Alone Forms:
Changes to Home Medications: Yes
Discharge Medications:
DC Medications w/original date entered in [employer]
levothyroxine 125 mcg tablet 125 mcg PO DAILY@0700 Thyroid 08/27/11
psyllium husk (aspartame) 3.4 gram oral powder packet (Metamucil Fiber Singles) 1 packet PO QPM Constipation 01/11/16
atorvastatin 40 mg tablet 40 mg PO HS High cholesterol 05/19/21
cholecalciferol (vitamin D3) 50 mcg (2,000 unit) tablet (Vitamin D3) 50 mcg PO QPM Supplement ##0 05/19/21
cyanocobalamin (vitamin B-12) 1,000 mcg tablet 1,000 mcg PO BID Supplement 05/19/21
multivitamin 1 ea PO DAILY Supplement 05/19/21
potassium chloride 20 mEq tablet,extended release(part/cryst) 20 meq PO QPM Electrolyte Repletion 09/28/21
aspirin 81 mg capsule 81 mg PO HS Blood clot prevention/tx 10/06/21
docusate sodium 100 mg capsule 100 mg PO BID #30 caps 01/25/23
apixaban 5 mg tablet (Eliquis) 5 mg PO BID@0700,1800 03/05/23
furosemide 20 mg tablet 20 mg PO DAILY@0700 Fluid Retention/Swelling 03/05/23
lisinopril 2.5 mg tablet 2.5 mg PO DAILY@1000 Blood Pressure 03/05/23
sennosides 8.6 mg tablet (Senna Lax) 8.6 mg PO DAILY Constipation 03/05/23
acetaminophen 500 mg tablet (Pain Relief Extra Strength (acetaminophen)) 1,000 mg PO TID #100 tabs 03/08/23
cyclobenzaprine 10 mg tablet 5 mg PO TIDPRN PRN muscle spasms #30 tabs 03/08/23
ferrous sulfate 325 mg (65 mg iron) tablet (FeroSul) 325 mg PO DAILY #100 tabs 03/08/23
sennosides 8.6 mg tablet (Senna Lax) 8.6 mg PO BID #100 tabs 03/08/23
tramadol 50 mg tablet 50 mg PO Q6HPRN PRN moderate pain #30 tabs 03/08/23
Home Medication Changes
dilaudid stopped
Pending Results: No
Total time spent discharging patient (in min): 41
[2023-03-08 15:00] VITALS: BP 128/62
--- NOTE | 2023-03-08 15:13 | VNURNOTE ---
[facility] resumption of care completed in Care Port after review of chart and discussion with patient. Patient confirmed having [facility] contact number.
--- NOTE | 2023-03-08 15:32 | CM ---
CM following re: d/c planning
Chart reviewed
Pt is medically stable for d/c
Pt is set up with [facility] and the clinical liaison placed the PIPPA in care port
IMM was reviewed and copy provided
Pt confirmed transport home
No additional d/c needs identified
PLAN; d/c home with [facility]
== END 2023-03-08 16:48 | disposition home health service (06) | DRG 543 ==
LOC: 4 EAST ACU 23:55
PROVIDERS: Physician Assistant Medical; Student in an Organized Health Care Education/Training Program; ADMITTING PHYSICIAN Hospitalist; ATTENDING PHYSICIAN Internal Medicine; CONSULT PHYSICIAN Orthopaedic Surgery; EMERGENCY PHYSICIAN Emergency Medicine; FAMILY PHYSICIAN Family Medicine
PROC: 30233N1 Transfusion of Nonautologous Red Blood Cells into Peripheral Vein, Percutaneous Approach (ICD-10-PCS; 2023-03-06)
DX: M80.0B1A Age-related osteoporosis with current pathological fracture, right pelvis, initial encounter for fracture (principal); D62 Acute posthemorrhagic anemia; E22.2 Syndrome of inappropriate secretion of antidiuretic hormone; Z68.41 Body mass index [BMI] 40.0-44.9, adult; M25.551 Pain in right hip; I25.10 Atherosclerotic heart disease of native coronary artery without angina pectoris; I10 Essential (primary) hypertension; I48.0 Paroxysmal atrial fibrillation; Z79.01 Long term (current) use of anticoagulants; E03.9 Hypothyroidism, unspecified; Z96.641 Presence of right artificial hip joint; K21.9 Gastro-esophageal reflux disease without esophagitis; D64.9 Anemia, unspecified; E66.01 Morbid (severe) obesity due to excess calories; G47.33 Obstructive sleep apnea (adult) (pediatric); M62.838 Other muscle spasm; D50.9 Iron deficiency anemia, unspecified; Z95.5 Presence of coronary angioplasty implant and graft
CPT/HCPCS: 73502; 73564; 73700; 80048; 81003; 81015; 82607; 82728; 82746; 83540; 83550; 83735; 83930; 83935; 84300; 85014; 85018; 85027; 85652; 86140; 86850; 86900; 86901; 86920; 96374; 96375; 97162; 97166; 97530; 97535; 99285; J2916; P9016

== ENCOUNTER → 2023-05-03 12:09 | Outpatient (REF) | payer MEDICARE, OTHER, SELFPAY | LOC: WDC 12:09 | PROVIDERS: ATTENDING PHYSICIAN Family Medicine | DX: Z12.31 Encounter for screening mammogram for malignant neoplasm of breast (principal) | CPT/HCPCS: 77063; 77067 ==

== ENCOUNTER 2023-08-10 11:00 | Inpatient (IN) | payer MEDICARE, OTHER, SELFPAY ==
[2023-08-09 23:22] VITALS: BP 154/108
[2023-08-09 23:45] VITALS: BP 152/90
[2023-08-09 23:46] VITALS: BMI 41.3
[2023-08-10] VITALS (32 sets, daily range): BP systolic 100–164; BP diastolic 46–111; BMI 39.8
[2023-08-10] LABS: % Basophils 0.3 % (0-2); % Eosinophils 1.9 % (0-6); % Immature Granulocytes 0.4 % (0-0.5); % Lymphocytes 16.9 % (20.5-51.1); % Monocytes 8.3 % (1.7-9.3); % Neutrophils 72.2 % (42.2-75.2); Absolute Eosinophils 0.2 10^3/uL (0-0.7); Absolute Lymphocytes 1.8 10^3/uL (1.2-3.4); Absolute Monocytes 0.9 10^3/uL (0.1-0.6); Absolute Neutrophils 7.7 10^3/uL (1.4-6.5); Hematocrit 38.4 % (37.0-47.0); Mean Corp Hgb Conc. 33.9 g/dL (33.0-37.0); Mean Corpuscular Hgb 30.6 pg (27.0-31.0); Mean Corpuscular Volume 90.4 fL (81.0-99.0); Nucleated Red Blood Cells % 0 %; Platelet Count 236 10^3/uL (130-400); Red Blood Cell Count 4.25 10^6/uL (4.20-5.40); Red Cell Dist. Width 13.5 % (11.5-14.5); White Blood Cell Count 10.6 10^3/uL (4.8-10.8)
[2023-08-10] MEDS: NSS 1000 IV (00:19)
[2023-08-10 00:20] LABS: ALT (SGPT) 17 U/L (0-35); AST (SGOT) 28 U/L (14-36); Albumin 4.4 g/dl (3.5-5.0); Alkaline Phosphatase 86 U/L (38-126); Blood Urea Nitrogen 21 mg/dl (7-17); Calcium 9.6 mg/dl (8.4-10.2); Carbon Dioxide 30 mmol/L (22-30); Chloride 103 mmol/L (98-107); Estimated Creatinine Clearance 88 ml/min; Glucose 134 mg/dl (70-99); Potassium 4.9 mmol/L (3.5-5.1); Sodium 139 mmol/L (135-145); Total Bilirubin 0.5 mg/dl (0.2-1.3); Total Protein 6.8 g/dl (6.3-8.2); eGFR > 60.00
[2023-08-10] MEDS: CARDIZEM 125 IV (00:38)
[2023-08-10] MEDS: CARDIZEM 25 MG IV (00:38)
--- NOTE | 2023-08-10 00:57 | ED.GENMED ---
History of Present Illness
<Mihai Gonzales DO - Last Filed: 08/10/23 05:34>
General
Chief Complaint: Cardiac Symptoms
Source: patient
Exam Limitations: none
Time Seen by Provider: 08/09/23 23:57
Nursing documentation reviewed up to this point in time: agreed with
History of Present Illness
History of Present Illness:
This a pleasant 67-year-old female who presents with irregular heart rate and palpitations. She states that she has been in and out of atrial fibrillation since 1 AM. She does have left jaw tightness and left shoulder pain. Denies fever, chills,
nausea or vomiting. Patient does have a history of A-fib but she is on Eliquis. She states that she has not missed a dose. She does sleep with a CPAP. She reports that sometimes she gets jaw pain from the CPAP but she thinks that this might feel
different. She has high blood pressure and high cholesterol. She also suffers from GERD.
Past History
<Mihai Gonzales DO - Last Filed: 08/10/23 05:34>
Past History
ED Past Medical History: GERD (Hiatal hernia ), HTN, Valvular disease (Heart murmur ), Hypothyroidism and Other (Questionable common bile duct stone status post ERCP done at [place] March 2006 )
ED Past Surgical History: Cardiac (Ventriculoseptal defect repair at age 6 , radiofrequency ablation 2004 ), Cholecystectomy (1986 ) and Gynecological (Hysterectomy 2005 )
Social History
Tobacco: Non-smoker
Alcohol: Occasional
Drug: None
Personal:
Living: with family
Employment: Employed
Review of Systems
<Mihai Gonzales DO - Last Filed: 08/10/23 05:34>
Review of Systems
Allergies reviewed?: Yes
Other source history: family
All Other Systems: ROS reviewed and negative except as documented in HPI and ROS
Constitutional: Reports no symptoms
EENT: Reports no symptoms
Respiratory: Reports no symptoms
Cardiac: Reports no symptoms
ABD/GI: Reports no symptoms
: Reports no symptoms
Musculoskeletal: Reports no symptoms
Skin: Reports no symptoms
Neurological: Reports no symptoms
Endocrine: Reports no symptoms
Hematologic/Lymphatic: Reports no symptoms
Psychiatric: Reports anxiety
Phy Exam
<DO Jeaneth Marcelo Last Filed: 08/10/23 05:34>
General Physical Exam
General Presentation: well appearing and no apparent distress
General Skin: warm and dry
General Habitus: normal
General Mental: alert
General Hydration: appears well hydrated
ENT Exam
ENT Exam: EOMI, pharynx normal, neck supple and normocephalic
Eye Exam
Eye Exam: PERRL, cornea clear and conjunctiva normal
Cardiovascular Exam
Cardiovascular Exam: irregularly irregular and tachycardia
Pulmonary Exam
Pulmonary Exam: lungs clear, no respiratory distress, no rales, no crackles, no rhonchi, no stridor, no wheezing and no cough
Gastrointestinal Exam
Gastrointestinal Exam: normal bowel sounds, non tender, soft, no organomegaly, no pulsatile mass and non distended
Neurological Exam
Neurological Exam: alert, oriented x3, no motor deficits and speech normal
Musculoskeletal Exam
Musculoskeletal Exam: full ROM and no edema
Skin Exam
Skin Exam: normal color, warm/dry, no rash and no petechia
Psychiatric Exam
Psychiatric Exam: normal mood/affect
Course
<DO Jeaneth Marcelo Filed: 08/10/23 05:34>
Orders/Labs/Results
Orders:
Orders
08/09/23 23:25
Electrocardiogram (*1) Urgent
Reason for Study: Atrial Fibrillation
EKG- Treatment ONCE
08/09/23 23:45
Diltiazem 125 mg/125 ml Nss [Cardizem] 125 mg in 125 ml IV PER PROTOCOL
Initial dose in mg/hr, then titrate:: 5
Titrate to keep:: Heart rate 80-100 bpm
Titrate by mg/hr:: 5 mg/hr
Frequency of titrations (minutes):: 15
Maximum dose in mg/hr:: 15
08/09/23 23:53
CMP [Comprehensive Metabolic Panel] Urgent
Complete Blood Count/With Diff Urgent
Troponin I Urgent
08/09/23 23:57
Diltiazem HCl [Cardizem] 25 mg IV NOW STA
08/10/23 00:18
EKG [Electrocardiogram (*1)] Urgent
Reason for Study: Tachycardia
EKG- Treatment ONCE
08/10/23 00:19
0.9% Sodium Chloride 1000 ml [Nss] 1,000 ml IV BOLUS
08/10/23 01:20
EKG [Electrocardiogram (*1)] Urgent
Reason for Study: Chest Pain
EKG- Treatment ONCE
08/10/23 01:58
Propofol [Diprivan] 40 ml .ROUTE .STK-MED
08/10/23 02:59
EKG [Electrocardiogram (*1)] Urgent
Reason for Study: Atrial Fibrillation
Comment: s/p cardioversion
08/10/23 03:00
EKG- Treatment ONCE
08/10/23 04:19
Troponin I Urgent
08/10/23 05:19
Nitroglycerin Ointment [Nitro-Bid] 1 inch TOPICAL NOW STA
08/10/23 06:55
CXR2 [CR Chest - 2 Views ] Urgent
Comment:
Reason For Exam: right sided chest pain
Abnormal Lab Results
08/09/23 08/10/23
23:53 04:19
Absolute Neuts (auto) 7.7 H 10^3/uL
(1.4-6.5)
Absolute Monos (auto) 0.9 H 10^3/uL
(0.1-0.6)
Lymphocytes % 16.9 L %
(20.5-51.1)
BUN 21 H mg/dl
(7-17)
Glucose 134 H mg/dl
(70-99)
Troponin I 0.040 H* ng/ml 0.043 H* ng/ml
08/09/23 23:53
08/09/23 23:53
Vital Signs
Initial and Last Documented VS:
Initial Vital Signs
Temp Pulse Resp BP Pulse Ox
98 F 148 24 154/108 97
08/09/23 23:22 08/09/23 23:22 08/09/23 23:22 08/09/23 23:22 08/09/23 23:22
Last Documented Vital Signs
Temp Pulse Resp BP Pulse Ox
98.2 F 73 16 121/54 99
08/10/23 03:58 08/10/23 06:56 08/10/23 06:56 08/10/23 06:56 08/10/23 06:56
<Cindy Schmidt MD - Last Filed: 08/10/23 09:09>
Orders/Labs/Results
Orders:
Orders
08/09/23 23:25
Electrocardiogram (*1) Urgent
Reason for Study: Atrial Fibrillation
EKG- Treatment ONCE
08/09/23 23:45
Diltiazem 125 mg/125 ml Nss [Cardizem] 125 mg in 125 ml IV PER PROTOCOL
Initial dose in mg/hr, then titrate:: 5
Titrate to keep:: Heart rate 80-100 bpm
Titrate by mg/hr:: 5 mg/hr
Frequency of titrations (minutes):: 15
Maximum dose in mg/hr:: 15
08/09/23 23:53
CMP [Comprehensive Metabolic Panel] Urgent
Complete Blood Count/With Diff Urgent
Troponin I Urgent
08/09/23 23:57
Diltiazem HCl [Cardizem] 25 mg IV NOW STA
08/10/23 00:18
EKG [Electrocardiogram (*1)] Urgent
Reason for Study: Tachycardia
EKG- Treatment ONCE
08/10/23 00:19
0.9% Sodium Chloride 1000 ml [Nss] 1,000 ml IV BOLUS
08/10/23 01:20
EKG [Electrocardiogram (*1)] Urgent
Reason for Study: Chest Pain
EKG- Treatment ONCE
08/10/23 01:58
Propofol [Diprivan] 40 ml .ROUTE .STK-MED
08/10/23 02:59
EKG [Electrocardiogram (*1)] Urgent
Reason for Study: Atrial Fibrillation
Comment: s/p cardioversion
08/10/23 03:00
EKG- Treatment ONCE
08/10/23 04:19
Troponin I Urgent
08/10/23 05:19
Nitroglycerin Ointment [Nitro-Bid] 1 inch TOPICAL NOW STA
08/10/23 06:55
CXR2 [CR Chest - 2 Views ] Urgent
Comment:
Reason For Exam: right sided chest pain
Abnormal Lab Results
08/09/23 08/10/23
23:53 04:19
Absolute Neuts (auto) 7.7 H 10^3/uL
(1.4-6.5)
Absolute Monos (auto) 0.9 H 10^3/uL
(0.1-0.6)
Lymphocytes % 16.9 L %
(20.5-51.1)
BUN 21 H mg/dl
(7-17)
Glucose 134 H mg/dl
(70-99)
Troponin I 0.040 H* ng/ml 0.043 H* ng/ml
08/09/23 23:53
08/09/23 23:53
Vital Signs
Initial and Last Documented VS:
Initial Vital Signs
Temp Pulse Resp BP Pulse Ox
98 F 148 24 154/108 97
08/09/23 23:22 08/09/23 23:22 08/09/23 23:22 08/09/23 23:22 08/09/23 23:22
Last Documented Vital Signs
Temp Pulse Resp BP Pulse Ox
98.2 F 73 16 121/54 99
08/10/23 03:58 08/10/23 06:56 08/10/23 06:56 08/10/23 06:56 08/10/23 06:56
Procedures
<DO Jeaneth Marcelo Last Filed: 08/10/23 05:34>
Cardioversion
Indication:: Afib
Performed by:: Myself
Energy Used: 200 joules
Number of attempts: 1
Complications: none
ASA Risk Score: Class II
Any reaction or bad outcome to prior sedation/anesthesia?: No history of a reaction
Sedation level to be attained: moderate
Chart and allergies reviewed: Yes
Patient reassessed prior to sedation: Yes
Time out completed at (validating right patient & procedure): 02:52
History of difficult intubation: No
Airway free of obstruction: Yes
Patient has a gag reflex: Yes
Patient is able to open mouth: Yes
Patient has no dentures: Yes
Patient has no loose teeth: Yes
Medication administered by Provider during Moderate Sedation: IV Propofol (mg)
Total dose administered: 50
Time drug administered: 02:55
Start Time: 02:52
Stop Time: 03:07
<DO Jeaneth Marcelo Last Filed: 08/10/23 05:34>
Update Note
Update Note:
Initial EKG shows atrial flutter with 2 1 AV conduction ventricular rate of 138. Incomplete right bundle branch block.
Post cardioversion EKG shows normal sinus rhythm rate of 78 with normal intervals, left axis deviation. No evidence of acute ischemia present.
08/10/2023 0533 AM: Spoke with Dr. Arriola, cardiology. He will have someone from his team will see patient this morning.
<Cindy Schmidt MD - Last Filed: 08/10/23 09:09>
Update Note
Update Note:
Initial EKG shows atrial flutter with 2 1 AV conduction ventricular rate of 138. Incomplete right bundle branch block.
Post cardioversion EKG shows normal sinus rhythm rate of 78 with normal intervals, left axis deviation. No evidence of acute ischemia present.
08/10/2023 0533 AM: Spoke with Dr. Arriola, cardiology. He will have someone from his team will see patient this morning.
Chest x-ray reviewed by me. No acute disease. Waiting for cardiology to come evaluate the patient. Patient resting comfortably with minimal discomfort. Says chest pain is nearly gone.
ED Attending Note
<Mihai Gonzales DO - Last Filed: 08/10/23 05:34>
-
Portions of this chart may have been created with voice recognition software.� Occasional wrong word or��sound alike� substitutions may have occurred due to the inherent limitations of voice recognition software.
Discharge Plan
Departure
Patient Disposition: Other
Date of Disposition: 08/10/23
Time of Disposition: 05:34
Patient with high blood pressure during this ER visit?: No
Condition: Good
Discharge Problem:
Atrial fibrillation with rapid ventricular response
Instructions: Cardioversion (DC), MODERATE SEDATION ADULT
Prescriptions:
No Action
levothyroxine 125 MCG tablet
125 mcg PO DAILY@0700
Metamucil Fiber Singles 1 PACKET powder in packet
1 packet PO QPM
atorvastatin 40 MG tablet
40 mg PO HS
cyanocobalamin (vitamin B-12) 1,000 MCG tablet
1,000 mcg PO BID
cholecalciferol (vitamin D3) [Vitamin D3] 50 mcg (2,000 unit) Tablet
50 mcg PO QPM Qty: 0
potassium chloride 20 mEq Tablet,Er Particles/Crystals
20 meq PO QPM
furosemide 20 MG tablet
20 mg PO DAILY@0700
lisinopril 2.5 MG tablet
2.5 mg PO DAILY@1000
Eliquis 5 MG tablet
5 mg PO BID
ferrous sulfate [FeroSul] 325 mg (65 mg iron) Tablet
325 mg PO DAILY Qty: 100 0RF
Theragen Tablet
1 tab PO DAILY@1000
docusate sodium 100 mg capsule
100 mg PO Q48H@1000
aspirin 81 mg Tablet,Delayed Release (Dr/Ec)
81 mg PO HS
Referrals:
[facility] [Provider Group]
Freedom Connors MD [Family Provider] -
Interventions
Interventions:
*Risk Screen - Suicide Last Done: 08/09/23 23:59
*General Assessment Last Done: 08/09/23 23:59
*Neglect/Abuse Screening Last Done: 08/09/23 23:59
ED- Fall Risk Assessment Last Done: 08/09/23 23:59
*ED COVID-19 Vaccine History Last Done: 08/09/23 23:59
ED- Pulmonary Assessment Last Done: 08/09/23 23:59
ED- Cardiac Assessment Last Done: 08/10/23 03:03
Discharge Date and Time
Print Language: EAST [place]
[2023-08-10 05:16] LABS: Troponin I 0.043 ng/ml
[2023-08-10] MEDS: NITRO-BID 1 INCH TOPICAL (05:32)
--- NOTE | 2023-08-10 09:38 | HPS.HSE ---
Addendum entered and electronically signed by Hollis Grimaldo MD 08/10/23 11:16:
67 yo female with PMH of CAD s/p OM2 stent 2020, paroxysmal A fib with eliquis. Presented to ED with jaw pain and palps. Was in A flutter, RVR and cardioverted in ED. Back in sinus. Exam with RRR, no murmurs, no edema. TnI 0.04.
Discussed case with primary advertising specialist. Given jaw pain, and mildly elevated troponin; we will admit. Trend trop, EKG. Likely lexiscan nuclear stress test on Sunday.
Original Note:
Family Physician
-
Family Physician: Freedom Connors
Chief Complaint
-
chest discomfort, palpitations
History of Present Illness
67 y/o female with CAD s/p CHRISTIANO to OM2 (NSTEMI 09/12/20, in [place]), PAF on Eliquis, asymptomatic bradycardia (47% burden on monitor per OP notes), ALTHEA on CPAP, obesity, and orthopedic issues (shoulder, hip) who is here for evaluation after she woke
up on 08/09/23 with jaw pain and palpitations. It briefly went away, but then came back for most of yesterday with associated chest soreness and right shoulder pain. She came to the ER where she was seen to be in atrial flutter. She was cardioverted
to SR. She is feeling improved. Troponin abnormal 0.043.
Medical History
Past Medical History
Past Medical History: Reports Arrhythmia (AFIB, bradycardia), CAD, HTN, Hypothyroidism and Other (obesity)
Past Surgical History: Reports Orthopedic
Social History
Tobacco: Non-smoker
Personal:
Living: With Family
Family History
Family History: Not pertinent
Allergies / Home Medications
Allergies reflects when Allergies were last updated in [employer].
Home Medications with original date entered in [employer]
Allergy/Medication List:
allergy: oxycodone
Home prescription meds: aspirin 81 mg daily, atorvastatin 40 mg daily, Eliquis 5 mg PO BID, furosemide 20 mg PO daily, lisinopril 5 mg PO daily, potassium 20 meq PO daily
Review of Systems
-
History Source: Patient
A 12 point ROS was completed and negative except as noted: Yes
Cardiac: Reports Chest Pain, Palpitations and Other (jaw and shoulder discomfort as described in detail)
Physical Exam
Vital Signs
Vital Signs
Temp Pulse Resp BP Pulse Ox
98.2 F 73 16 121/54 99
08/10/23 03:58 08/10/23 06:56 08/10/23 06:56 08/10/23 06:56 08/10/23 06:56
Physical Exam
General: Well Developed and No Apparent Distress
HEENT: NormoCephalic and Anicteric
Respiratory: Clear and Non Labored Respirations
Cardiac: Regular Rhythm
Skin: Warm and Dry
Neuro: AO x 3
Psych: Calm
Laboratory Results
-
08/09/23 23:53
08/09/23 23:53
Laboratory Results
Total Bilirubin 0.5 mg/dl (0.2-1.3) 08/09/23 23:53
AST 28 U/L (14-36) 08/09/23 23:53
ALT 17 U/L (0-35) 08/09/23 23:53
Alkaline Phosphatase 86 U/L (38-126) 08/09/23 23:53
Troponin I 0.043 ng/ml H* 08/10/23 04:19
Data Reviewed
-
Diagnostic Radiology: Report Reviewed by me (No active pulmonary process.)
Medical Tests (Nuc Med, Echo, EKG etc): Image Personally Visualized and interpreted (EKG SR with ICRBBB,LAFB) and Report Reviewed by me (Echo 09/01/20: Normal biventricular size and systolic function without regional wall motion abnormality.
Calcified mitral valve and mitral valve annulus without evidence of valvular dysfunction.)
Lab Data: Labs Reviewed by me
Impression/Plan
-
IMPRESSION/PLAN:
Atrial flutter, typical:
-patient with known history of paroxysmal AFIB
-stable in SR s/p cardioversion
-continue Eliquis for OAC
-not on rate-control meds due to history of bradycardia
-monitor on telemetry
Abnormal troponin, chest pain:
-etiology not year clear, though could be due to tachycardia, but patient also with known CAD
-trend to peak
-check echo
-plan for nuclear Lexiscan stress test Sunday ([place] due to ortho issues)
CAD with hx stenting:
-Continue ASA and statin
-w/u as above
ALTHEA:
-continue CPAP
--- NOTE | 2023-08-10 10:14 | ED.ADDNOTE ---
ED Addendum
ED Addendum
ED Addendum Note:
Patient's chest x-ray read by me which shows no acute disease. Patient evaluated by cardiology service who agreed to admit patient onto their service for a cardiac stress test.
[2023-08-10] MEDS: ELIQUIS 5 MG PO ×2 (10:51→20:03)
[2023-08-10 11:32] LABS: Troponin I 0.031 ng/ml
[2023-08-10 11:39] LABS: TSH Reflex To Free T4 2.38 uIU/ml (0.47-4.68)
[2023-08-10] MEDS: SYNTHROID 125 MCG PO (12:28)
[2023-08-10] MEDS: ZESTRIL 2.5 MG PO (12:28)
[2023-08-10] MEDS: FEOSOL 325 MG PO (12:28)
[2023-08-10] MEDS: LASIX 20 MG PO (12:29)
--- NOTE | 2023-08-10 14:54 | CM ---
CM following for DC planning needs.
Pt. resides w/ spouse in a private, 2 story home w/ 1 ARNAUD. Functionally, patient is indep. w/ ADLs, mobility.
Pt. has history of VN thru [facility] following hip surgery.
Anticipated DC plan is for home, no needs.
CM to follow.
[2023-08-10] MEDS: METAMUCIL, KONSYL 1 PACKET PO (18:10)
[2023-08-10] MEDS: KCL 20 MEQ PO (18:11)
[2023-08-10] MEDS: VITAMIN D3 (cholecalciferol) 50 MCG PO (18:11)
[2023-08-10] MEDS: VITAMIN B-12 1000 MCG PO (20:03)
[2023-08-10] MEDS: ASPIR LOW (ENTERIC COATED) 81 MG PO (21:48)
[2023-08-10] MEDS: LIPITOR 40 MG PO (21:48)
[2023-08-11] VITALS (7 sets, daily range): BP systolic 116–156; BP diastolic 53–87; BMI 39.9
--- NOTE | 2023-08-11 01:34 | PTCARENOTE ---
Patient with intermittent complaints of palpitations earlier this evening. Reviewed alarms, small burst of A-fib, now NSR in the 60's. VSS. Wearing her own CPAP from home to sleep. Denies pain, call [facility] in reach
[2023-08-11] MEDS: SYNTHROID 125 MCG PO (04:31)
[2023-08-11] MEDS: LASIX 20 MG PO (06:31)
[2023-08-11] MEDS: ELIQUIS 5 MG PO ×2 (08:31→19:36)
[2023-08-11] MEDS: VITAMIN B-12 1000 MCG PO ×2 (08:31→19:36)
[2023-08-11] MEDS: FEOSOL 325 MG PO (08:32)
--- NOTE | 2023-08-11 08:35 | W.PN.CD ---
Today's Communication / Plan
-
Continue to observe
Stress test planned for 08/13/2023
Impression / Plan
-
Atrial flutter, typical and Known paroxysmal AFIB
-stable in SR s/p cardioversion
-continue Eliquis for OAC
-not on rate-control meds due to history of bradycardia
-monitor on telemetry
Abnormal troponin, chest pain:
-etiology not year clear, though could be due to tachycardia, but patient also with known CAD
- peak 0.043
- echo 08/10/2023: normal LVEF/wall motion, mild/mod MS
-plan for nuclear Lexiscan stress test Sunday ([place] due to ortho issues)
CAD with hx stenting:
-Continue ASA and statin
-w/u as above
ALTHEA:
-continue CPAP
Subjective/Interval Hx:
Quiet night. No CP. Tele just sinus
Physical Exam
Vital Signs/Labs
Vital Signs
Temp Pulse Resp BP Pulse Ox
97.7 F 91 18 116/87 100
08/11/23 07:17 08/11/23 04:30 08/11/23 07:17 08/11/23 04:22 08/11/23 07:17
08/10/23 08/11/23 08/12/23
06:59 06:59 06:59
Actual Weight 114.2 kg 110.4 kg
08/09/23 23:53
08/09/23 23:53
LAB Results
08/09/23 08/10/23 08/10/23
23:53 04:19 10:58
Troponin I 0.040 H* 0.043 H* 0.031 D
Physical Exam
Constitutional: No acute distress
EENT: Anicteric
Cardiovascular: Rhythm & rate is regular and Pedal edema is absent
Respiratory: Respiratory effort normal and Lungs clear to auscul.
GI: Soft and Distention absent
Neuro/Psych: AO x 3
Data Reviewed
-
Date of Service: August 11, 2023
[2023-08-11] MEDS: COLACE 100 MG PO (10:57)
[2023-08-11] MEDS: ZESTRIL 2.5 MG PO (10:57)
[2023-08-11] MEDS: THERAGRAN 1 TABLET PO (10:57)
[2023-08-11] MEDS: METAMUCIL, KONSYL 1 PACKET PO (18:03)
[2023-08-11] MEDS: KCL 20 MEQ PO (18:04)
[2023-08-11] MEDS: VITAMIN D3 (cholecalciferol) 50 MCG PO (18:04)
[2023-08-11] MEDS: LIPITOR 40 MG PO (22:09)
[2023-08-11] MEDS: ASPIR LOW (ENTERIC COATED) 81 MG PO (22:09)
[2023-08-12] VITALS (7 sets, daily range): BP systolic 124–150; BP diastolic 54–85; BMI 39.6
[2023-08-12] MEDS: KCL 20 MEQ PO (05:30)
[2023-08-12] MEDS: SYNTHROID 125 MCG PO (05:59)
[2023-08-12] MEDS: LASIX 20 MG PO (05:59)
[2023-08-12] MEDS: FEOSOL 325 MG PO (08:35)
[2023-08-12] MEDS: ELIQUIS 5 MG PO ×2 (08:35→20:28)
[2023-08-12] MEDS: VITAMIN B-12 1000 MCG PO ×2 (08:35→20:28)
[2023-08-12] MEDS: ZESTRIL 2.5 MG PO (11:00)
[2023-08-12] MEDS: THERAGRAN 1 TABLET PO (11:00)
--- NOTE | 2023-08-12 15:15 | W.PN.CD ---
Today's Communication / Plan
-
For stress test tomorrow
Impression / Plan
-
Atrial flutter, typical and Known paroxysmal AFIB
-stable in SR s/p cardioversion. Still in sinus
-continue Eliquis for OAC
-not on rate-control meds due to history of bradycardia
-monitor on telemetry
- Good ablation candidate
Abnormal troponin, chest pain:
-etiology not year clear, though could be due to tachycardia, but patient also with known CAD
- peak 0.043
- echo 08/10/2023: normal LVEF/wall motion, mild/mod MS
-plan for nuclear Lexiscan stress test Sunday ([place] due to ortho issues)
CAD with hx stenting:
-Continue ASA and statin
-w/u as above
ALTHEA:
-continue CPAP
Subjective/Interval Hx:
Quiet night. No CP. Tele just sinus
Physical Exam
Vital Signs/Labs
Vital Signs
Temp Pulse Resp BP Pulse Ox
97.7 F 65 20 150/76 97
08/12/23 14:53 08/12/23 11:00 08/12/23 14:53 08/12/23 11:00 08/12/23 14:53
08/11/23 08/12/23 08/13/23
06:59 06:59 06:59
Actual Weight 110.4 kg 109.6 kg
08/09/23 23:53
08/09/23 23:53
LAB Results
08/09/23 08/10/23 08/10/23
23:53 04:19 10:58
Troponin I 0.040 H* 0.043 H* 0.031 D
Physical Exam
Constitutional: No acute distress
EENT: Anicteric
Cardiovascular: Rhythm & rate is regular and Pedal edema is absent
Respiratory: Respiratory effort normal and Lungs clear to auscul.
GI: Soft and Distention absent
Neuro/Psych: Alert
Data Reviewed
-
Date of Service: August 12, 2023
[2023-08-12] MEDS: METAMUCIL, KONSYL 1 PACKET PO (17:37)
[2023-08-12] MEDS: VITAMIN D3 (cholecalciferol) 50 MCG PO (17:39)
[2023-08-12] MEDS: ASPIR LOW (ENTERIC COATED) 81 MG PO (22:06)
[2023-08-12] MEDS: LIPITOR 40 MG PO (22:06)
[2023-08-13] VITALS (7 sets, daily range): BP systolic 139–171; BP diastolic 52–75; BMI 39.5
--- NOTE | 2023-08-13 02:15 | PTCARENOTE ---
No complaints chest discomfort/palpitations, NSR on the monitor mostly in the 60's-70's. Can get tachy with ambulation (to the 120's) - asymptomatic. Pt. sleeping.
[2023-08-13] MEDS: LASIX 20 MG PO (05:00)
[2023-08-13] MEDS: SYNTHROID 125 MCG PO (05:00)
[2023-08-13] MEDS: VITAMIN B-12 1000 MCG PO (08:00)
[2023-08-13] MEDS: ELIQUIS 5 MG PO (08:00)
[2023-08-13] MEDS: FEOSOL 325 MG PO (08:00)
--- NOTE | 2023-08-13 08:43 | PTCARENOTE ---
Rec'd pt this AM w no complaints of chest pain or palpitations. Pt taken off unit for nuclear stress test @8:15 and rec'd 8am meds. In NSR with hr is 60-70's and tachy with ambulation. Plan of care on going. No new orders at this time.
[2023-08-13] MEDS: LEXISCAN 0.4 MG IV (09:59)
--- NOTE | 2023-08-13 10:37 | W.PN.CD ---
Addendum entered and electronically signed by Ladi Saunders MD 08/13/23 13:47:
I saw and examined the patient.
The CLOTHING EXAMINER's note was reviewed and I agree with the note.
Comment: She is feeling well. rrr no m/r/g. lungs cta. Lexiscan shows normal LVEF, and no infarct or ischemia. We discussed the approach to paf, and if rhythm control preferred would consider ablation. She will discuss with Dr Arriola. We will
give her a sa bb (propranolol) to use during episodes as she has had persistent sinus bradycardia in the past. Ok to discharge home. Plan d/w patient and her . >30 minutes spent in her care today.
Original Note:
Today's Communication / Plan
-
Nuclear stress test today. Dispo depending on results.
Continue current cardiac meds
Impression / Plan
-
Atrial flutter, typical and Known paroxysmal AFIB
-stable in SR s/p cardioversion. Still in sinus.
-continue Eliquis for OAC
-not on rate-control meds due to history of bradycardia
-monitor on telemetry
-Good ablation candidate
Abnormal troponin, chest pain:
-etiology not year clear, though could be due to tachycardia, but patient also with known CAD
-peak 0.043
-echo 08/10/2023: normal LVEF/wall motion, mild/mod MS
CAD with hx stenting:
-Continue ASA and statin
-w/u as above
ALTHEA:
-continue CPAP
Subjective/Interval Hx:
No CP
Tele stable
Physical Exam
Vital Signs/Labs
Vital Signs
Temp Pulse Resp BP Pulse Ox
97.8 F 72 18 141/66 97
08/13/23 07:28 08/13/23 05:00 08/13/23 07:28 08/13/23 05:00 08/13/23 07:28
08/12/23 08/13/23 08/14/23
06:59 06:59 06:59
Actual Weight 109.6 kg 109.3 kg
08/09/23 23:53
08/09/23 23:53
LAB Results
08/10/23
10:58
Troponin I 0.031 D
Physical Exam
Constitutional: No acute distress
EENT: Anicteric
Cardiovascular: Rhythm & rate is regular
Respiratory: Respiratory effort normal and Lungs clear to auscul.
Neuro/Psych: AO x 3
Data Reviewed
-
Date of Service: August 13, 2023
EKG: Other (tele SR)
[2023-08-13] MEDS: ZESTRIL 2.5 MG PO (11:14)
[2023-08-13] MEDS: COLACE 100 MG PO (11:15)
[2023-08-13] MEDS: THERAGRAN 1 TABLET PO (11:15)
--- NOTE | 2023-08-13 13:51 | W.DS.TRANS ---
DC Summary - Rn Hemodialysis Charge
-
Discharge Instructions:
Discharge Diagnosis/Procedures Atrial flutter s/p cardioversion.
Chest discomfort, abnormal troponin. Stress test
normal.
Diet Low Cholesterol
Activity No restrictions
Driving Restrictions As prior to admission
Bathing Restrictions None
Instructions:
Stand-Alone Forms:
Changes to Home Medications: Yes
Discharge Medications:
DC Medications w/original date entered in [employer]
levothyroxine 125 mcg tablet 125 mcg PO DAILY@0700 Thyroid 08/27/11
psyllium husk (aspartame) 3.4 gram oral powder packet (Metamucil Fiber Singles) 1 packet PO QPM Constipation 01/11/16
atorvastatin 40 mg tablet 40 mg PO HS High cholesterol 05/19/21
cholecalciferol (vitamin D3) 50 mcg (2,000 unit) tablet (Vitamin D3) 50 mcg PO QPM Supplement ##0 05/19/21
cyanocobalamin (vitamin B-12) 1,000 mcg tablet 1,000 mcg PO BID Supplement 05/19/21
potassium chloride 20 mEq tablet,extended release(part/cryst) 20 meq PO QPM Electrolyte Repletion 09/28/21
apixaban 5 mg tablet (Eliquis) 5 mg PO BID Blood Clot Prevention/Tx 03/05/23
furosemide 20 mg tablet 20 mg PO DAILY@0700 Fluid Retention/Swelling 03/05/23
lisinopril 2.5 mg tablet 2.5 mg PO DAILY@1000 Blood Pressure 03/05/23
ferrous sulfate 325 mg (65 mg iron) tablet (FeroSul) 325 mg PO DAILY #100 tabs 03/08/23
aspirin 81 mg tablet,delayed release 81 mg PO HS Blood Clot Prevention/Tx 08/10/23
docusate sodium 100 mg capsule 100 mg PO Q48H@1000 STOOL SOFTENER 08/10/23
therapeutic multivitamin 1 tab PO DAILY@1000 Supplement 08/10/23
propranolol 20 mg tablet 20 mg PO DAILYPRN PRN palpitations #30 tabs 08/13/23
Home Medication Changes
PRN propranolol added
Pending Results: No
--- NOTE | 2023-08-13 15:01 | PTCARENOTE ---
Discharge instructions given to pt and caregiver, patient verbalized understanding of home mediations and a fib teaching. INT and TELE d/c. Patient state she had all personal belongings including cell phone when leaving. Patient escorted to
entrance and accompanied by staff and discharged home into personal car with spouse.
--- NOTE | 2023-08-13 21:51 | ED.GENMED ---
History of Present Illness
General
Chief Complaint: Cardiac Symptoms
Source: patient
Exam Limitations: none
Time Seen by Provider: 08/09/23 23:57
Nursing documentation reviewed up to this point in time: agreed with
History of Present Illness
History of Present Illness:
67-year-old female presents with atrial fibrillation with rapid ventricular response. Patient states that she has been in and out of atrial fibrillation much of the day. She states that today she had some jaw tightness and left shoulder pain.
Patient does have a history of A-fib and is on Eliquis. She states that she has not missed any doses.
Past History
Past History
ED Past Medical History: GERD (Hiatal hernia ), HTN, Valvular disease (Heart murmur ), Hypothyroidism and Other (Questionable common bile duct stone status post ERCP done at [place] March 2006 )
ED Past Surgical History: Cardiac (Ventriculoseptal defect repair at age 6 , radiofrequency ablation 2004 ), Cholecystectomy (1986 ) and Gynecological (Hysterectomy 2005 )
Social History
Tobacco: Non-smoker
Alcohol: Occasional
Drug: None
Personal:
Living: with family
Employment: Employed
Review of Systems
Review of Systems
Allergies reviewed?: Yes
All Other Systems: ROS reviewed and negative except as documented in HPI and ROS
Constitutional: Reports no symptoms
EENT: Reports no symptoms
Respiratory: Reports no symptoms
Cardiac: Reports chest pain and palpitations
ABD/GI: Reports no symptoms
: Reports no symptoms
Musculoskeletal: Reports no symptoms
Skin: Reports no symptoms
Neurological: Reports no symptoms
Endocrine: Reports no symptoms
Hematologic/Lymphatic: Reports no symptoms
Psychiatric: Reports no symptoms
Phy Exam
General Physical Exam
General Presentation: well appearing and no apparent distress
General Skin: warm and dry
General Habitus: normal
General Mental: alert
General Hydration: appears well hydrated
ENT Exam
ENT Exam: EOMI, pharynx normal, neck supple and normocephalic
Eye Exam
Eye Exam: PERRL, cornea clear and conjunctiva normal
Cardiovascular Exam
Cardiovascular Exam: irregularly irregular
Pulmonary Exam
Pulmonary Exam: lungs clear, no respiratory distress, no rales, no crackles, no rhonchi, no stridor, no wheezing and no cough
Gastrointestinal Exam
Gastrointestinal Exam: normal bowel sounds, non tender, soft, no organomegaly, no pulsatile mass and non distended
Neurological Exam
Neurological Exam: alert, oriented x3, no motor deficits and speech normal
Musculoskeletal Exam
Musculoskeletal Exam: full ROM and no edema
Skin Exam
Skin Exam: normal color, warm/dry, no rash and no petechia
Psychiatric Exam
Psychiatric Exam: normal mood/affect
Course
Orders/Labs/Results
Orders:
Orders
08/09/23 23:25
Electrocardiogram (*1) Urgent
Reason for Study: Atrial Fibrillation
EKG- Treatment ONCE
08/09/23 23:45
Diltiazem 125 mg/125 ml Nss [Cardizem] 125 mg in 125 ml IV PER PROTOCOL
Initial dose in mg/hr, then titrate:: 5
Titrate to keep:: Heart rate 80-100 bpm
Titrate by mg/hr:: 5 mg/hr
Frequency of titrations (minutes):: 15
Maximum dose in mg/hr:: 15
08/09/23 23:53
CMP [Comprehensive Metabolic Panel] Urgent
Complete Blood Count/With Diff Urgent
Troponin I Urgent
08/09/23 23:57
Diltiazem HCl [Cardizem] 25 mg IV NOW STA
08/10/23 00:18
EKG [Electrocardiogram (*1)] Urgent
Reason for Study: Tachycardia
EKG- Treatment ONCE
08/10/23 00:19
0.9% Sodium Chloride 1000 ml [Nss] 1,000 ml IV BOLUS
08/10/23 01:20
EKG [Electrocardiogram (*1)] Urgent
Reason for Study: Chest Pain
EKG- Treatment ONCE
08/10/23 01:58
Propofol [Diprivan] 40 ml .ROUTE .STK-MED
08/10/23 02:59
EKG [Electrocardiogram (*1)] Urgent
Reason for Study: Atrial Fibrillation
Comment: s/p cardioversion
08/10/23 03:00
EKG- Treatment ONCE
08/10/23 04:19
Troponin I Urgent
08/10/23 05:19
Nitroglycerin Ointment [Nitro-Bid] 1 inch TOPICAL NOW STA
08/10/23 Breakfast
Cholesterol Lowering
At Your Request: Full Participation
08/10/23 06:55
CXR2 [CR Chest - 2 Views ] Urgent
Comment:
Reason For Exam: right sided chest pain
08/10/23 10:18
Add On- LAB Routine
Tests Added?: TSH with reflex to free T4
Echo 2D MMode Color/Doppler Routine
Reason for Study: abnormal troponin, Aflutter, chest discomfort
08/10/23 10:30
Apixaban [Eliquis] 5 mg PO BID
08/10/23 10:35
Admit/Transfer Patient As Directed
Co-Sign Provider:
Level of Care: Inpatient admission
Assign to:: IVU
Physician / Group: Dr. Grimaldo
Diagnosis: Atrial flutter, abnormal troponin, chest pain
Reason for Hospitalization: atrial flutter, abnormal troponin, chest pain
Expected length of stay greater than two midnights?: Yes
ELOS- Estimated Length of Stay in days: 4
I certify the patient meets the requirements for IP care: Yes
08/10/23 10:44
EKG [Electrocardiogram (*1)] Routine
Reason for Study: Chest Pain
08/10/23 10:[address] Non Medication Order As Directed
Physician Order: Please remove nitro paste. TY!
Above order entered?: Yes
08/10/23 10:58
Troponin I Routine
08/10/23 11:51
Ferrous Sulfate [Feosol] 325 mg PO DAILY
Furosemide [Lasix] 20 mg PO DAILY@0700
Levothyroxine [Synthroid] 125 mcg PO DAILY@0600
Lisinopril [Zestril] 2.5 mg PO DAILY@1000
08/10/23 11:51
Activity As Directed
Activity Level: As Tolerated
Vital Signs As Directed
Frequency: Per unit guidelines
Cpap [RESP] Routine
Patient to use own unit?: Yes
Instructions: QHS. If patient does not have her own with her, please use ours with her settings. TY
08/10/23 18:00
Cholecalciferol (Vitamin D3) [VITAMIN D3 (cholecalciferol)] 50 mcg PO QPM
Potassium Chloride [KCl] 20 meq PO QPM
Psyllium [Metamucil, Konsyl] 1 packet PO QPM
08/10/23 20:00
Cyanocobalamin [Vitamin B-12] 1,000 mcg PO BID
08/10/23 22:00
Aspirin Low Dose EC [Aspir Low (Enteric Coated)] 81 mg PO HS
Atorvastatin [Lipitor] 40 mg PO HS
08/10/23 23:53
TSH Reflex To Free T4 Urgent
Comment: ADD ON
08/11/23 10:00
Docusate Sodium [Colace] 100 mg PO Q48H
Multivitamin [Theragran] 1 tablet PO DAILY@1000
08/13/23 Breakfast
NPO
Allow oral meds: Yes
Allow clear liquids: No
NM Cardiac Stress IN AM
Comment:
Reason For Exam: chest pain, abnormal troponin
08/13/23 08:00
Nuclear lexiscan Stress Test Routine
Reason for Study: chest pain, abnormal troponin
Abnormal Lab Results
08/09/23 08/10/23
23:53 04:19
Absolute Neuts (auto) 7.7 H 10^3/uL
(1.4-6.5)
Absolute Monos (auto) 0.9 H 10^3/uL
(0.1-0.6)
Lymphocytes % 16.9 L %
(20.5-51.1)
BUN 21 H mg/dl
(7-17)
Glucose 134 H mg/dl
(70-99)
Troponin I 0.040 H* ng/ml 0.043 H* ng/ml
08/09/23 23:53
08/09/23 23:53
Vital Signs
Initial and Last Documented VS:
Initial Vital Signs
Temp Pulse Resp BP Pulse Ox
98 F 148 24 154/108 97
08/09/23 23:22 08/09/23 23:22 08/09/23 23:22 08/09/23 23:22 08/09/23 23:22
Last Documented Vital Signs
Temp Pulse Resp BP Pulse Ox
98.1 F 71 16 139/60 97
08/13/23 11:19 08/13/23 14:09 08/13/23 14:09 08/13/23 14:09 08/13/23 14:09
Procedures
Moderate Sedation
ASA Risk Score: Class II
Chart and allergies reviewed: Yes
Consent for anesthesia obtained: Yes
Time out completed (validating right patient & procedure): Yes
Moderate Sedation Start Time(when first medication is given): 02:55
History of difficult intubation: No
Airway free of obstruction: Yes
Patient has a gag reflex: Yes
Patient is able to open mouth: Yes
Patient has no dentures: Yes
Patient has no loose teeth: Yes
Medication administered by Provider during Moderate Sedation: IV Propofol (mg)
Total dose administered: 50
Time drug administered: 02:55
Moderate Sedation Procedure End Time: 03:15
Cardioversion
Indication:: Afib
Performed by:: Myself
Synchronized?: Yes
Energy Used: 200 joules
Successful?: Yes
Complications: None
Sedation level to be attained: moderate
*Critical Care Note
Total Time (30-74mins, 75-104mins- exclusive of procedures): Not Applicable
ED Attending Note
-
Portions of this chart may have been created with voice recognition software.� Occasional wrong word or��sound alike� substitutions may have occurred due to the inherent limitations of voice recognition software.
Discharge Plan
Departure
Patient Disposition: Admit
Date of Disposition: 08/10/23
Time of Disposition: 05:34
Admit to: Telemetry
Admit to doctor: cardiology
Presentation/result/management discussed w/ accepting MD/DO: Hospitalist
Patient with high blood pressure during this ER visit?: No
Condition: Good
Discharge Problem:
Atrial fibrillation with rapid ventricular response, Chest pain in adult
Interventions
Interventions:
*Risk Screen - Suicide Last Done: 08/09/23 23:59
*General Assessment Last Done: 08/09/23 23:59
*Neglect/Abuse Screening Last Done: 08/09/23 23:59
ED- Fall Risk Assessment Last Done: 08/09/23 23:59
*ED COVID-19 Vaccine History Last Done: 08/09/23 23:59
*Nursing Disposition Last Done: 08/10/23 12:02
ED- Pulmonary Assessment Last Done: 08/09/23 23:59
ED- Cardiac Assessment Last Done: 08/10/23 03:03
Discharge Date and Time
Discharge Date/Time: 08/10/23 12:02
== END 2023-08-13 15:15 | disposition home or self-care (01) | DRG 310 ==
LOC: IVU 11:00
PROVIDERS: Internal Medicine Cardiovascular Disease; Nurse Practitioner; ADMITTING PHYSICIAN Internal Medicine; EMERGENCY PHYSICIAN Student in an Organized Health Care Education/Training Program; FAMILY PHYSICIAN Family Medicine
PROC: 5A2204Z Restoration of Cardiac Rhythm, Single (ICD-10-PCS; 2023-08-10)
PROC: 5A09357 Assistance with Respiratory Ventilation, Less than 24 Consecutive Hours, Continuous Positive Airway Pressure (ICD-10-PCS; 2023-08-10)
PROC: 4A12XM4 Monitoring of Cardiac Stress, External Approach (ICD-10-PCS; 2023-08-13)
PROC: 3E033HZ Introduction of Radioactive Substance into Peripheral Vein, Percutaneous Approach (ICD-10-PCS; 2023-08-13)
DX: I48.3 Typical atrial flutter (principal); I48.0 Paroxysmal atrial fibrillation; K21.9 Gastro-esophageal reflux disease without esophagitis; K44.9 Diaphragmatic hernia without obstruction or gangrene; E03.9 Hypothyroidism, unspecified; G47.33 Obstructive sleep apnea (adult) (pediatric); I10 Essential (primary) hypertension; I25.10 Atherosclerotic heart disease of native coronary artery without angina pectoris; Z95.5 Presence of coronary angioplasty implant and graft; I25.2 Old myocardial infarction; Z79.01 Long term (current) use of anticoagulants
CPT/HCPCS: 71046; 78452; 80053; 84443; 84484; 85025; 92960; 93005; 93017; 93306; 96374; 99152; 99285; A9500; J2785

== ENCOUNTER 2023-10-04 07:45 | Day surgery (SDC) | payer MEDICARE, OTHER, SELFPAY ==
[2023-09-26 10:30] VITALS: BMI 41.1
[2023-10-04] VITALS (14 sets, daily range): BP systolic 92–168; BP diastolic 54–91; BMI 40.3
--- NOTE | 2023-10-04 11:47 | ITS.CL.PACE ---
[facility] - Pacemaker Implant
Pacemaker Implant
Procedure Report:
Dual Chamber Pacemaker Placement:
Ms. Aguilar is a very pleasant 67 yrs old woman with severe symptomatic bradycardia and hx of ASD/VSD repair, and paroxysmal atrial fibrillation. She is recommended for PPM placement.�
Indications: Tachy bradycardia Syndrome
Date of the Procedure: 10/04/2023
Pre-Operative Diagnosis: Tachy bradycardia Syndrome
Post-Operative Diagnosis: Tachy bradycardia Syndrome
Procedure Performed: DUAL CHAMBER PACEMAKER IMPLANTATION
Performing Physician:
Vishal Anand MD
Anesthesia:
See anesthesia records
Pre-operative antibiotics:
Ancef 2gm IV
Detailed Description of the Procedure:
The patient was identified using hospital identification and informed consent obtained for the procedure. The risks were explained including, but not limited to: Bleeding, infection, arrhythmia, stroke, vascular/cardiac/lung puncture, surgery,
pacemaker dependency/device malfunction. All questions were answered.
The patient was brought to the electrophysiology laboratory in stable condition in fasting state. Continuous electrocardiographic and hemodynamic monitoring was initiated. The initial rhythm was sinus bradycardia.
A surgical pause and time out was performed immediately prior to the procedure with review of her medical history, recent labs, allergies and medications with site of procedure identified and consent noted in the chart. Antibiotics pre operatively
given. All team members concurred.
The procedure site was meticulously prepared with surgical scrub and allowed to dry with no pooling. Sterile draping was applied to cover the procedure site. The image intensifier was draped with sterile bag and positioned over the patient.
The left infraclavicular region was prepped and draped in the usual sterile fashion. Local anesthesia was administered subcutaneously using 1% lidocaine / Bupivacaine. The left cephalic vein cutdown was attempted. There was no cephalic noted.
Following infiltration with local anesthetic, the axillary vein was accessed using the fluoroscopic guidance using the micro-puncture apparatus using the venogram guidance. The vascular sheaths were introduced for lead access. The leads were
advanced into the right ventricle and the right atrium.
The right ventricular lead was secured in position with an active fixation technique at the apical septal location.
The atrial lead was deployed to right atrial appendage and anchored with active fixation.�
There was excellent sensing, pacing, and impedance from the leads, with no diaphragmatic stimulation at 10 V output.�Bovie cautery, antibiotics, and fluoroscopy were used.
The sheaths were withdrawn, and the thresholds remained acceptable. The leads were secured in position at the venous entry site with 2-0 Ethibond. A pocket was fashioned contiguous to the incision.
A pursestring suture was a deployed around the entry of the leads to secure the bleeding.
The electrode terminals were connected to the pulse generator, which was placed into the pocket. The wound was irrigated thoroughly with antibiotic solution. The pacemaker was secured to the underlying fascia with 2-0 Ethibond suture.
D-Stat was deposited around the device.
The wound was closed in 3 layers using 2-0 V Loc then 2 layers of 4-0 V loc sutures to the dermis. Steri-Strips and Aquacel applied to the wound.
Procedure End:
The procedure was tolerated well.
Estimated Blood loss:
5 cc
Specimens Removed:
No cultures and no specimens were obtained. No intraoperative pathology was identified.
Fluoro time:
1.5 min / 2.78mGy
Urine output:
None
Packs / Drains/ Tubes:
None
Instrument / Sponge Count Correct:
Yes
Complications of the Procedure:
None
Condition of Patient at Time of Transfer:
Hemodynamically stable with no neurological or vascular compromise.
Device information:�
Generator: [employer]; Model: W1DR01; Serial # [id number]�
Atrial Lead: [employer]; Model: 5076-52; Serial # [id number]�
Measured data in the right atrium was sensing of 3.2 mV, impedance of 475 ohms and threshold of 0.5 V at 0.4ms.
RV Lead: [employer]; Model: 5076-58; Serial # [id number]
Measured data in the RV lead was sensing of 8mV, impedance of 680 ohms and threshold of 0.5 V at 0.4ms�
Lawrence parameter settings were AAIR <=>DDDR 60-130 bpm. �
����������� Mode Switch: On
����������� Paced AV interval: 180ms
����������� Sensed AV interval: 150 ms.
����������� Rate Adaptive A-V Interval: Off
Output� parameters:
����������������������� Amplitude (V)������������� Pulse Width (ms)������� Sensitivity (mV)
����������� RA: ����� 3.5 ����������������� ����������� 0.4������������������ ����������� 0.3
����������� RV:������ 3.5������������������ ����������� 0.4������������������ ����������� 0.9
Summary:
Successful implantation of MRI compatible dual chamber Medtronic pacemaker
Results/Recommendations:
-Please follow up CXR�
1. Please provide patient with adequate pain control�
Instructions to be given to patient:�
- Please follow up with [facility] at [address] [place] [address] ([phone]) to get your wound checked within 14 days of your discharge.
- Do not wet incision site until after it is evaluated at cardiology clinic. No showers until then. Sponge baths are OK.�
- No swimming until cleared by the cardiology clinic.
- Do not lift left elbow above shoulder, particularly with sudden jerking movements, for 1 month�
- Do not lift anything weighing more than 10 pounds with the left arm for 1 month�
- If you notice any fevers, shortness of breath, lightheadedness, chest pain, or worsening swelling in the wound site, please contact the arrhythmia clinic, contact your nurse intern, or present to the hospital for evaluation.�
Vishal Anand MD
Electrophysiology
[2023-10-04] MEDS: TYLENOL 650 MG PO ×3 (12:15→22:18)
--- NOTE | 2023-10-04 12:45 | PTCARENOTE ---
Dr Anand and Fabiana TALLEYNP at bedside with pt assessing left upper chest pacemaker site. Dressing dry and intact but pt with 8/10 discomfort. Dressing pealed back for assessment and hematoma noted at site. Dr Anand applying manual pressure.
Verbal order obtained for 2 mg Morphine IV now- see apr. Pressure dressing replaced after manual pressure complete.
[2023-10-04] MEDS: MORPHINE SULFATE 2 MG IV (12:50)
[2023-10-04] MEDS: ULTRAM 50 MG PO ×2 (14:16→20:16)
[2023-10-04] MEDS: ZESTRIL 2.5 MG PO (14:16)
--- NOTE | 2023-10-04 16:30 | PTCARENOTE ---
Rec'd report from Nemo in the EP lab; Rec'd pt AAOx3 w/no c/o CP or SOB. Pt able to ambulate from stretcher to chair w/2 P assist. Pt normally OOB w/SPC. Pt w/LUE immobilizer in place, w/EDMOND chest wall new PPM site w/Pressure dressing in place over
aquacell dressing. No signs or symptoms of bleeding or hematoma. Pt's VS stable w/HR 60's & pt V-paced on telemetry monitoring. Pt w/call [facility]oses within reach & plan of care ongoing.
--- NOTE | 2023-10-04 16:57 | CM ---
Reviewed chart. Met with Mrs. Aguilar to review discharge plans. She states prior to admission she resides with her spouse in a two sto ry home with one step to enter. She states she had recent hip surgery so she has a bed on the first floor and she
can stay on the first floor if needed. She states she has a full flight of steps to get to bedroom/full bathroom. She states she has a powder room on the first floor. She states prior to admission she ambulates with a single point cane. She
states she has a single point cane, shower chair and walker at home. she states she has a prescription plan with [facility] and uses [facility]. The discharge plan is to return home with her spouse when medically stable.
[2023-10-04] MEDS: KCL 20 MEQ PO (18:11)
[2023-10-04] MEDS: ANCEF 5 IV (18:14)
[2023-10-04] MEDS: FLUSH (NSS) 2 FLUSH IV (18:14)
[2023-10-04] MEDS: LIPITOR 40 MG PO (21:20)
[2023-10-04] MEDS: ASPIR LOW (ENTERIC COATED) 81 MG PO (21:20)
[2023-10-04] MEDS: METAMUCIL, KONSYL 1 PACKET PO (21:21)
--- NOTE | 2023-10-04 21:46 | PTCARENOTE ---
Received patient for the night in the chair with in room. L upper extremity immobilizer in place. L chest pressure dressing CDI. SR with some paced beats on the monitor. Pt reports 9/10 stabbing pain at pacemaker site, PRN Tramadol
administered as per APR. Ice pack applied to L chest. Discussed plan of care regarding pain management with the patient and her , both verbalized understanding at this time. Call moses within reach.
[2023-10-05] VITALS (13 sets, daily range): BP systolic 103–143; BP diastolic 47–90
[2023-10-05] MEDS: ANCEF 5 IV (01:05)
[2023-10-05] MEDS: ULTRAM 50 MG PO ×3 (02:52→14:32)
[2023-10-05 03:27] LABS: Hematocrit 31.8 % (37.0-47.0); Hemoglobin 10.6 g/dL (12.0-16.0); Mean Corp Hgb Conc. 33.3 g/dL (33.0-37.0); Mean Corpuscular Hgb 31.3 pg (27.0-31.0); Mean Corpuscular Volume 93.8 fL (81.0-99.0); Mean Platelet Volume 10.2 fL (7.4-10.4); Platelet Count 209 10^3/uL (130-400); Red Blood Cell Count 3.39 10^6/uL (4.20-5.40); Red Cell Dist. Width 13.2 % (11.5-14.5)
[2023-10-05 03:36] LABS: Blood Urea Nitrogen 19 mg/dl (7-17); Carbon Dioxide 25 mmol/L (22-30); Chloride 105 mmol/L (98-107); Estimated Creatinine Clearance 99 ml/min; Glucose 159 mg/dl (70-99); INR 1.14; Magnesium 2.2 mg/dl (1.6-2.3); PT 14.6 Sec (11.4-14.6); Potassium 4.6 mmol/L (3.5-5.1); Sodium 138 mmol/L (135-145); eGFR > 60.00
[2023-10-05] MEDS: TYLENOL 650 MG PO ×2 (04:12→20:15)
--- NOTE | 2023-10-05 04:16 | PTCARENOTE ---
~0230 RN went in to assess patients pain and complete morning vital signs and blood work. Patients left breast visibly swollen and tender to touch. Pressure dressing still intact, no ecchymosis noted. No swelling radiating down the left arm or
across to the right side of the chest. BP 140s/90s, HR maintained 60s-70s. RADHA Dueñas aware and in to see patient. Labs sent STAT. Immobilizer removed at this point in time and alternating between ice and warm compress. Patient verbalizes
adequate pain relief with Ultram and Tylenol. Patient tearful at times, emotional support provided.
--- NOTE | 2023-10-05 04:35 | W.PN.UPDATE ---
Update Note
Progress Note Update
-came in to evaluate pt for pain and swelling of the L breast. Pt is uncomfortable d/t pain, but hemodynamically stable- sbp 140s, nsr 86 bpm. She had pacer implant 10/03 and her last ASA and Eliquis were the night before the procedure. L breast
appears significantly larger than R with visible vein swelling and tender to touch. No bruising. No head/neck or arm swelling noted. Has pressure dressing over the pacer site. Pt is getting Tylenol and Ultram for pain, got Morphine earlier. She
thinks that swelling is worse overnight.
-checked labs: Hg 10.6 (11.9 on 09/25), platelets 209, INR 1.14, PTT 27.0
-discussed with Dr. Grimaldo - will check chest CT for bleeding/hematoma.
-ice/warmth, Tylenol, Ultram, Morphine for comfort. Continue to monitor. Held ASA for now. Eliquis is NOT ordered.
--- NOTE | 2023-10-05 05:17 | PTCARENOTE ---
Took patient for CT of the chest. PAJeanethC in to make patient aware of the results. Warm blanket provided to left chest. Patient still reporting adequate pain relief as long as she isn't sitting up.
[2023-10-05] MEDS: SYNTHROID 125 MCG PO (06:27)
--- NOTE | 2023-10-05 06:36 | PTCARENOTE ---
Patient reports 2/10 pain at her pacemaker site, but states it gets worse with movement. K pad ordered and applied to left chest.
[2023-10-05] MEDS: LASIX PO (08:00)
--- NOTE | 2023-10-05 09:06 | W.PN.CD ---
Today's Communication / Plan
-
-Patient with significant left upper chest hematoma. Confirmed by CT.
-Monitor hemoglobin
-pressure dressing
-Eliquis remains on hold. Last dose was reported to be Sunday
-Further evaluation and reviewed by EP.
Impression / Plan
-
67-year-old woman with a history of coronary artery disease stenting of OM1 in 2020, paroxysmal atrial fibrillation, anticoagulation with Eliquis, sleep apnea, hypertension who was noted to have tachybradycardia syndrome prompting recommendation for
pacemaker implant.
.
Status post pacemaker implant pacemaker/Medtronic implant 10/05/2023
-Patient with significant left upper chest hematoma. Confirmed by CT.
-Monitor hemoglobin
-pressure dressing
-Eliquis remains on hold. Last dose was reported to be Sunday
-Further evaluation and reviewed by EP.
.
Coronary artery disease/history of OM2 stenting in 2020.
-Stable without angina continue aspirin
.
Paroxysmal atrial fibrillation. Remains in sinus rhythm.
-Eliquis currently on hold
Physical Exam
Vital Signs/Labs
Vital Signs
Temp Pulse Resp BP Pulse Ox
98 F 82 20 135/77 98
10/05/23 07:33 10/05/23 07:45 10/05/23 07:33 10/05/23 07:36 10/05/23 07:36
10/04/23 10/05/23 10/06/23
06:59 06:59 06:59
Actual Weight 111.584 kg
10/05/23 03:18
PT 14.6 Sec (11.4-14.6) 10/05/23 03:18
INR 1.14 10/05/23 03:18
APTT 27.0 Sec (23.4-35.0) 10/05/23 03:18
Magnesium 2.2 mg/dl (1.6-2.3) 10/05/23 03:18
Physical Exam
Constitutional: No acute distress
EENT: Anicteric
Cardiovascular: Rhythm & rate is regular
Respiratory: Respiratory effort normal and Wheeze Absent
GI: Soft and Non tender
Neuro/Psych: Alert
Other: Other
Left upper chest pressure dressing intact. There is some swelling and tenderness around pacemaker site extending down to the left breast consistent with hematoma.
Data Reviewed
-
Date of Service: October 05, 2023
Medical Decision Making: Reviewed Test Results
Echo: Report Reviewed by me
X-Ray/CT/US/MRI/NUC/PET: Report Reviewed by me
Medical Tests (PFT, Pathology etc): Report Reviewed by me
Labs: Labs Reviewed by me
[2023-10-05] MEDS: ZESTRIL 2.5 MG PO (09:18)
--- NOTE | 2023-10-05 10:03 | PTCARENOTE ---
Addendum entered by Bernadette oJsue RN 10/05/23 17:44:
Pt given 500ml bolus of saline over one hour.
Original Note:
Pt assisted to bedside commode, pt c/o feeling 'woozy', nausea and sweaty, heart rate 120's , BP 131/66. Symptoms resolved once pt back in bed, and notified.
[2023-10-05 10:22] LABS: Hematocrit 27.4 % (37.0-47.0); Hemoglobin 9.4 g/dL (12.0-16.0); Mean Corp Hgb Conc. 34.3 g/dL (33.0-37.0); Mean Corpuscular Volume 90.4 fL (81.0-99.0); Mean Platelet Volume 10.5 fL (7.4-10.4); Platelet Count 205 10^3/uL (130-400); Red Blood Cell Count 3.03 10^6/uL (4.20-5.40); Red Cell Dist. Width 13.3 % (11.5-14.5); White Blood Cell Count 8.4 10^3/uL (4.8-10.8)
[2023-10-05] MEDS: NSS 500 IV ×2 (10:47→15:31)
--- NOTE | 2023-10-05 10:51 | W.PN.UPDATE ---
Update Note
Progress Note Update
EP Note.
Pacer by Dr. Anand yesterday.
Now with large hematoma.
Pressure dressing removed. No blood on dressing. Overlying skin is normal w/o evidence of pressure injury.
Pain is better than peak pain.
I would avoid hematoma evacuation as pain is being adequately managed, the incision is intact, and there is no current threat to the overlying skin.
Continue pain control, leave pressure dressing on, watch H/H.
Hold Eliquis at least 3-4 days.
She should be seen Sun or Sun of next week for a recheck and consideration of resumption of Eliquis.
--- NOTE | 2023-10-05 11:07 | CM ---
Reviewed chart. Met with and Mrs. Aguilar to review discharge plans. She states she is feeling okay, discomfort when she moves due to the hematoma. We reviewed [facility] with them. They state they have a follow uo appointment with
Cardiology on Sunday10/12/23. They would want to wait on [facility] until after that appointment. Prior to admission she resides with her spouse in a two story home with one step to enter. She has a full flight of steps to get to bedroom/full
bathroom. She states she has a bed on the first floor due to recent surgery. So she can stay on the first floor if needed. There is a powder room on the first floor. Prior to admission she was independent with ambulates with a single point cane
and independent with adls. She has a single point cane, rolling walker and shower chair at home. She has a prescription plan with and uses [facility]. Medical work-up in progress. The discharge plan is to return home with her spouse when
medically stable.
[2023-10-05 15:23] LABS: Hemoglobin 8.9 g/dL (12.0-16.0); Mean Corp Hgb Conc. 34.2 g/dL (33.0-37.0); Mean Corpuscular Hgb 31.4 pg (27.0-31.0); Mean Corpuscular Volume 91.9 fL (81.0-99.0); Mean Platelet Volume 10.7 fL (7.4-10.4); Platelet Count 167 10^3/uL (130-400); Red Blood Cell Count 2.83 10^6/uL (4.20-5.40); Red Cell Dist. Width 13.3 % (11.5-14.5); White Blood Cell Count 7.7 10^3/uL (4.8-10.8)
[2023-10-05] MEDS: NSS 1000 IV (16:32)
--- NOTE | 2023-10-05 17:35 | PTCARENOTE ---
Pt had second episode of feeling 'woozy' when OOB to commode for BM. Heart rate up to 130's. Symptoms resolved when pt was back in bed but BP 103/59. YURI Nguyễn notified, pt was seen by , 500 mls bolus of saline was given followed
by continuous infusion overnight. H/H rechecked twice so far today, currently 8.9/26.0 from 10.6/31.8 this morning. Pacer site checked again by and pressure dressing reapplied. Pt getting pain relief from tramadol every 6 hours. Telemetry
shows sinus rhythm @80 at rest and up to 135 with minimal activity, 4 beat run NSVT noted. Will monitor closely and recheck H/H at 21:30. Pt identified as a fall risk, precautions in place, pt understands.
[2023-10-05] MEDS: KCL 20 MEQ PO (18:03)
[2023-10-05 19:56] LABS: Hematocrit 24.7 % (37.0-47.0); Hemoglobin 8.4 g/dL (12.0-16.0)
[2023-10-05] MEDS: METAMUCIL, KONSYL PO (22:36)
[2023-10-05] MEDS: LIPITOR 40 MG PO (22:39)
[2023-10-06] VITALS (9 sets, daily range): BP systolic 115–135; BP diastolic 45–71
[2023-10-06] MEDS: NSS IV (00:20)
--- NOTE | 2023-10-06 03:15 | PTCARENOTE ---
Received patient at change of shift with at bedside. SR on the monitor. L pressure dressing in place and CDI. Left breast visibly swollen, skin tender to touch. No ecchymosis noted. Pt reports 2/10 pain at left chest wall, PRN Tylenol
administered as per APR. Patient reports adequate pain relief. 1930 H/H drawn, Dr. Funez aware of results. RADHA Ta received consent for blood. One unit of PRBCs administered as per TAR without issue. Plan of care discussed, patient
verbalized understanding. Patient sleeping with CPAP, call moses within reach.
[2023-10-06] MEDS: TYLENOL 650 MG PO ×3 (03:40→22:27)
[2023-10-06 04:00] LABS: Hematocrit 25.1 % (37.0-47.0); Hemoglobin 8.6 g/dL (12.0-16.0); Mean Corp Hgb Conc. 34.3 g/dL (33.0-37.0); Mean Corpuscular Hgb 30.9 pg (27.0-31.0); Mean Corpuscular Volume 90.3 fL (81.0-99.0); Mean Platelet Volume 10.3 fL (7.4-10.4); Platelet Count 161 10^3/uL (130-400); Red Blood Cell Count 2.78 10^6/uL (4.20-5.40); Red Cell Dist. Width 14.6 % (11.5-14.5); White Blood Cell Count 7.1 10^3/uL (4.8-10.8)
[2023-10-06 04:22] LABS: Blood Urea Nitrogen 17 mg/dl (7-17); Calcium 8.6 mg/dl (8.4-10.2); Carbon Dioxide 27 mmol/L (22-30); Chloride 108 mmol/L (98-107); Estimated Creatinine Clearance 87 ml/min; Glucose 108 mg/dl (70-99); Potassium 4.8 mmol/L (3.5-5.1); Sodium 141 mmol/L (135-145); eGFR > 60.00
--- NOTE | 2023-10-06 04:42 | PTCARENOTE ---
YURI-C Ed updated on hgb level of 8.6. CBC ordered for 0800. IV fluids have been discontinued since the start of the blood infusion 2140.
[2023-10-06] MEDS: SYNTHROID 125 MCG PO (06:22)
--- NOTE | 2023-10-06 06:32 | W.PN.CD ---
Today's Communication / Plan
-
Patient received 1 unit of PRBC overnight
Overall patient says she feels a little better and pacemaker site appears unchanged compared to previous exam
Will check follow-up hemoglobin.
Will remain off Eliquis
Continued observation.
Impression / Plan
-
67-year-old woman with a history of coronary artery disease stenting of OM1 in 2020, paroxysmal atrial fibrillation, anticoagulation with Eliquis, sleep apnea, hypertension who was noted to have tachybradycardia syndrome prompting recommendation for
pacemaker implant.
.
Status post pacemaker implant pacemaker/Medtronic implant 10/05/2023
-Patient with significant left upper chest hematoma. Confirmed by CT.
-Reviewed with EP yesterday. Exam this morning pacer site similar to exam at bedside with Dr. Melendez last night. Patient states if anything her chest feels a little better.
-1 unit of PRBCs given
-Mild increase in hemoglobin. With follow-up lab test scheduled for 8 AM. Will await results.
-Eliquis remains on hold. Last dose was reported to be Sunday
Anemia. Will address as noted above. Will assess need for additional PRBC.
.
Coronary artery disease/history of OM2 stenting in 2020.
-Stable without angina continue aspirin
.
Paroxysmal atrial fibrillation. Remains in sinus rhythm.
-Eliquis currently on hold
Physical Exam
Vital Signs/Labs
Vital Signs
Temp Pulse Resp BP Pulse Ox
98.1 F 72 18 135/52 99
10/06/23 03:39 10/06/23 03:37 10/06/23 03:39 10/06/23 03:37 10/06/23 03:39
10/04/23 10/05/23 10/06/23
06:59 06:59 06:59
Actual Weight 111.584 kg
10/06/23 03:41
PT 14.6 Sec (11.4-14.6) 10/05/23 03:18
INR 1.14 10/05/23 03:18
APTT 27.0 Sec (23.4-35.0) 10/05/23 03:18
Magnesium 2.2 mg/dl (1.6-2.3) 10/05/23 03:18
Physical Exam
Constitutional: No acute distress
Cardiovascular: Rhythm & rate is regular
Respiratory: Respiratory effort normal
GI: Soft
Neuro/Psych: Alert
Other: Other (Left upper chest swelling and hematoma at pacemaker site. Dressing appears dry. Larger is swelling including the right breast with some ecchymoses extending into the left axilla. Overall exam appears similar to exam from around 530
PM last night)
Data Reviewed
-
Date of Service: October 06, 2023
Medical Decision Making: Reviewed Test Results
EKG: Tracing Personally Visualized and interpreted
Medical Tests (PFT, Pathology etc): Report Reviewed by me
Labs: Labs Reviewed by me
--- NOTE | 2023-10-06 07:45 | PTCARENOTE ---
Assumed care of pt from prev nsg shift; Pt AAOx3 w/no c/o CP or SOB. Pt does c/o 3-4/10 L upper chest/PPM insertion pain w/activity. Pt declined pain meds at this time. Pt's VS stable w/HR in the 60's, BP this AM 133/57. Pt w/EDMOND chest pressure
dressing C/D/I w/no signs of bleeding. Pt w/some swelling around site & L breast, unchanged from prev assessment w/RN at handoff. Pt is SR on telemetry monitoring. Pt bedrest at this time. Pt w/call moses within reach & plan of care ongoing.
[2023-10-06 09:30] LABS: Hematocrit 26.2 % (37.0-47.0); Hemoglobin 8.8 g/dL (12.0-16.0); Mean Corp Hgb Conc. 33.6 g/dL (33.0-37.0); Mean Corpuscular Hgb 30.7 pg (27.0-31.0); Mean Corpuscular Volume 91.3 fL (81.0-99.0); Mean Platelet Volume 10.6 fL (7.4-10.4); Platelet Count 154 10^3/uL (130-400); Red Blood Cell Count 2.87 10^6/uL (4.20-5.40); Red Cell Dist. Width 14.6 % (11.5-14.5); White Blood Cell Count 6.6 10^3/uL (4.8-10.8)
[2023-10-06] MEDS: LASIX 20 MG PO (10:13)
[2023-10-06] MEDS: ZESTRIL 2.5 MG PO (10:13)
[2023-10-06] MEDS: KCL 20 MEQ PO (17:38)
[2023-10-06] MEDS: ULTRAM 50 MG PO (17:38)
[2023-10-06 17:44] LABS: Hematocrit 25.4 % (37.0-47.0); Hemoglobin 8.6 g/dL (12.0-16.0)
[2023-10-06] MEDS: LIPITOR 40 MG PO (22:27)
[2023-10-06] MEDS: METAMUCIL, KONSYL 1 PACKET PO (22:28)
[2023-10-07] VITALS (9 sets, daily range): BP systolic 128–144; BP diastolic 46–79
--- NOTE | 2023-10-07 02:36 | PTCARENOTE ---
Pt. received at change of shift sitting up in chair. VSS, NSR with occasional Apacing on tele. Pt on CPap at HS. Left chest wall with pressure dressing at PPM site. Dressing C/D/I with swelling noted around the site and L breast which is unchanged
from handoff assessment. Pt with complaints of pain at the PPM site which is worse with activity. Tylenol administered per order, see MAR. Education provided on activity restrictions and pt. OOB with x1 assist and rolling walker. Can make needs
known. Call moses within reach.
[2023-10-07 04:31] LABS: % Basophils 0.4 % (0-2); % Eosinophils 5.6 % (0-6); % Immature Granulocytes 0.4 % (0-0.5); % Lymphocytes 24.9 % (20.5-51.1); % Monocytes 8.7 % (1.7-9.3); Absolute Eosinophils 0.4 10^3/uL (0-0.7); Absolute Lymphocytes 1.9 10^3/uL (1.2-3.4); Absolute Monocytes 0.7 10^3/uL (0.1-0.6); Absolute Neutrophils 4.6 10^3/uL (1.4-6.5); Hematocrit 27.1 % (37.0-47.0); Mean Corp Hgb Conc. 33.2 g/dL (33.0-37.0); Mean Corpuscular Hgb 31.1 pg (27.0-31.0); Mean Corpuscular Volume 93.8 fL (81.0-99.0); Mean Platelet Volume 10.5 fL (7.4-10.4); Nucleated Red Blood Cells % 0 %; Platelet Count 154 10^3/uL (130-400); Red Blood Cell Count 2.89 10^6/uL (4.20-5.40); Red Cell Dist. Width 14.6 % (11.5-14.5); White Blood Cell Count 7.6 10^3/uL (4.8-10.8)
[2023-10-07 04:54] LABS: Blood Urea Nitrogen 19 mg/dl (7-17); Carbon Dioxide 26 mmol/L (22-30); Chloride 106 mmol/L (98-107); Estimated Creatinine Clearance 99 ml/min; Glucose 96 mg/dl (70-99); Potassium 4.4 mmol/L (3.5-5.1); Sodium 141 mmol/L (135-145); eGFR > 60.00
[2023-10-07] MEDS: LASIX 20 MG PO (06:37)
[2023-10-07] MEDS: SYNTHROID 125 MCG PO (06:37)
--- NOTE | 2023-10-07 07:50 | PTCARENOTE ---
Assumed care of pt from prev nsg shift; Pt AAOx3 w/no c/o CP or SOB. Pt does c/o 3-4/10 L upper chest/PPM insertion pain w/activity. Pt declined pain meds at this time. Pt's VS stable w/HR in the 60's, BP this AM 133/46. Pt w/EDMOND chest pressure
dressing C/D/I w/no signs of bleeding. Pt w/some swelling around site & L breast, w/more apparent ecchymosis this AM from prev assessment yesterday. Pt is SR/ST w/activity on telemetry monitoring. Plan of care discussed w/pt & spouse.
--- NOTE | 2023-10-07 08:21 | W.PN.CD ---
Today's Communication / Plan
-
Overall pacer site looks stable.
Hemoglobin trending up
Discomfort is controlled. Will continue with Tylenol and tramadol
Likely discharge later today
Impression / Plan
-
67-year-old woman with a history of coronary artery disease stenting of OM1 in 2020, paroxysmal atrial fibrillation, anticoagulation with Eliquis, sleep apnea, hypertension who was noted to have tachybradycardia syndrome prompting recommendation for
pacemaker implant.
.
Status post pacemaker implant pacemaker/Medtronic implant 10/05/2023
-Patient with significant left upper chest hematoma. Confirmed by CT.
-Reviewed with EP, .. Exam this morning stable compared to the last 2 days. Patient feels a bit better still has soreness when she moves her arm or tries to raise her arm.
-1 unit of PRBCs given 10/05/2023
-Hemoglobin trending up
-Eliquis remains on hold. Last dose was reported to be Sunday
Anemia. Hemoglobin 9. Can follow with outpatient
.
Coronary artery disease/history of OM2 stenting in 2020.
-Stable without angina continue aspirin
.
Paroxysmal atrial fibrillation. Remains in sinus rhythm.
-Eliquis currently on hold
Physical Exam
Vital Signs/Labs
Vital Signs
Temp Pulse Resp BP Pulse Ox
97.7 F 82 20 133/46 100
10/07/23 07:54 10/07/23 08:00 10/07/23 07:54 10/07/23 07:57 10/07/23 07:54
10/07/23 04:04
10/07/23 04:04
PT 14.6 Sec (11.4-14.6) 10/05/23 03:18
INR 1.14 10/05/23 03:18
APTT 27.0 Sec (23.4-35.0) 10/05/23 03:18
Magnesium 2.2 mg/dl (1.6-2.3) 10/05/23 03:18
Physical Exam
Constitutional: No acute distress
Cardiovascular: Rhythm & rate is regular
Respiratory: Respiratory effort normal
GI: Soft
Neuro/Psych: Alert
Other: Other (Left upper chest pacer site dressing intact swelling is noted as yesterday but is soft. She does have some soreness when she lifts her arm. This is no more than yesterday.)
Data Reviewed
-
Date of Service: October 07, 2023
Medical Decision Making: Reviewed Test Results
Medical Tests (PFT, Pathology etc): Report Reviewed by me
--- NOTE | 2023-10-07 09:08 | W.DS.TRANS ---
Addendum entered and electronically signed by Stevie Funez MD 10/07/23 10:43:
Hold lisinopril for 1 week. Patient can resume sooner if systolic blood pressure consistently greater than 140
Original Note:
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
-
Discharge Instructions:
Discharge Diagnosis/Procedures Pacemaker implant
Diet Low Cholesterol
Driving Restrictions No driving for 1 week
Bathing Restrictions OK to Shower
Instructions:
Stand-Alone Forms: DC Inst - Implanted Device
Changes to Home Medications: Yes
Discharge Medications:
DC Medications w/original date entered in [employer]
levothyroxine 125 mcg tablet 125 mcg PO DAILY@0700 Thyroid 08/27/11
psyllium husk (aspartame) 3.4 gram oral powder packet (Metamucil Fiber Singles) 1 packet PO HS Constipation 01/11/16
atorvastatin 40 mg tablet 40 mg PO HS High cholesterol 05/19/21
cholecalciferol (vitamin D3) 50 mcg (2,000 unit) tablet (Vitamin D3) 50 mcg PO QPM Supplement ##0 05/19/21
cyanocobalamin (vitamin B-12) 1,000 mcg tablet 1,000 mcg PO BID Supplement 05/19/21
potassium chloride 20 mEq tablet,extended release(part/cryst) 20 meq PO QPM Electrolyte Repletion 09/28/21
furosemide 20 mg tablet 20 mg PO DAILY@0700 Fluid Retention/Swelling 03/05/23
lisinopril 2.5 mg tablet 2.5 mg PO DAILY@1000 Blood Pressure 03/05/23
aspirin 81 mg tablet,delayed release 81 mg PO HS Blood Clot Prevention/Tx 08/10/23
therapeutic multivitamin 1 tab PO DAILY@1000 Supplement 08/10/23
propranolol 20 mg tablet 20 mg PO DAILYPRN PRN palpitations #30 tabs 08/13/23
ferrous sulfate 325 mg (65 mg iron) tablet (FeroSul) 325 mg PO .DAILY AT 1000 09/21/23
acetaminophen 325 mg tablet 650 mg (2 x 325 mg) PO Q4HPRN PRN MILD PAIN #1 tab 10/07/23
tramadol 50 mg tablet 50 mg PO Q6H PRN moderate Pain #10 tabs 10/07/23
Home Medication Changes
Eliquis 5mg BID has been stopped until Dr Hurtado determines it is safe to resume. This will be assessed at follow up visit
Tramadol 50mg PO Q6 hours as need for moderate pain
Pending Results: No
Total time spent discharging patient (in min): 35
[2023-10-07] MEDS: ZESTRIL 2.5 MG PO (09:34)
[2023-10-07] MEDS: ULTRAM 50 MG PO (09:34)
[2023-10-07] MEDS: TYLENOL 650 MG PO (13:45)
--- NOTE | 2023-10-07 14:20 | PTCARENOTE ---
Pt's IV line & telemetry pack discontinued. D/C instructions discussed w/pt & spouse. Pt left w/personal belongings including cellphone, heel curver, cane, & clothing. Pt escorted out via wheelchair by staff, with pt's spouse providing transportation
home.
== END 2023-10-07 14:25 | disposition home or self-care (01) ==
LOC: CATH 07:45
PROVIDERS: Internal Medicine Cardiovascular Disease; Nurse Practitioner; Nurse Practitioner Adult Health; Physician Assistant Medical; Student in an Organized Health Care Education/Training Program; ATTENDING PHYSICIAN Internal Medicine Cardiovascular Disease; FAMILY PHYSICIAN Family Medicine; OTHER PHYSICIAN Internal Medicine
DX: I49.5 Sick sinus syndrome (principal); I10 Essential (primary) hypertension; I48.0 Paroxysmal atrial fibrillation; Z88.5 Allergy status to narcotic agent; Z98.890 Other specified postprocedural states
CPT/HCPCS: 33228; 33208; 71045; 71250; 80048; 83735; 85014; 85018; 85025; 85027; 85610; 85730; 86850; 86900; 86901; 86920; 93005; C1785; C1892; C1898; P9016; Q9967

== ENCOUNTER → 2023-10-11 11:27 | Outpatient (REF) | payer MEDICARE, OTHER, SELFPAY ==
[2023-10-11 13:35] LABS: % Basophils 0.3 % (0-2); % Eosinophils 4.8 % (0-6); % Immature Granulocytes 0.7 % (0-0.5); % Lymphocytes 14.9 % (20.5-51.1); % Monocytes 8.4 % (1.7-9.3); % Neutrophils 70.9 % (42.2-75.2); Absolute Eosinophils 0.3 10^3/uL (0-0.7); Absolute Immature Granulocytes 0.1 10^3/uL (0-0.05); Absolute Monocytes 0.6 10^3/uL (0.1-0.6); Absolute Neutrophils 4.9 10^3/uL (1.4-6.5); Hematocrit 28.6 % (37.0-47.0); Hemoglobin 9.3 g/dL (12.0-16.0); Mean Corp Hgb Conc. 32.5 g/dL (33.0-37.0); Mean Corpuscular Hgb 31.4 pg (27.0-31.0); Mean Corpuscular Volume 96.6 fL (81.0-99.0); Mean Platelet Volume 10.5 fL (7.4-10.4); Nucleated Red Blood Cells % 0 %; Platelet Count 196 10^3/uL (130-400); Red Blood Cell Count 2.96 10^6/uL (4.20-5.40); Red Cell Dist. Width 14.6 % (11.5-14.5); White Blood Cell Count 6.9 10^3/uL (4.8-10.8)
[2023-10-11 14:21] LABS: ALT (SGPT) 18 U/L (0-35); AST (SGOT) 22 U/L (14-36); Albumin 4.1 g/dl (3.5-5.0); Alkaline Phosphatase 94 U/L (38-126); Blood Urea Nitrogen 15 mg/dl (7-17); Calcium 9.2 mg/dl (8.4-10.2); Carbon Dioxide 25 mmol/L (22-30); Chloride 101 mmol/L (98-107); Glucose 115 mg/dl (70-99); Iron 61 ug/dl (37-170); Potassium 4.3 mmol/L (3.5-5.1); Sodium 140 mmol/L (135-145); Total Bilirubin 1.2 mg/dl (0.2-1.3); Total Protein 6.2 g/dl (6.3-8.2); eGFR > 60.00
[2023-10-11 14:32] LABS: Percent Saturation 18 % (20-50); Total Iron Binding Capacity 330 ug/dl (265-497)
[2023-10-11 14:58] LABS: Ferritin 56.7 ng/ml (11.1-264.0); Ferritin 57.4 ng/ml (11.1-264.0)
== END ==
LOC: REG 11:27
PROVIDERS: ATTENDING PHYSICIAN Internal Medicine Cardiovascular Disease; FAMILY PHYSICIAN Family Medicine
DX: D50.0 Iron deficiency anemia secondary to blood loss (chronic) (principal); T82.837A Hemorrhage due to cardiac prosthetic devices, implants and grafts, initial encounter; R00.1 Bradycardia, unspecified
CPT/HCPCS: 36415; 80053; 82728; 83540; 83550; 85025

== ENCOUNTER 2024-12-10 09:17 | Emergency (ER) | payer MEDICARE, OTHER, SELFPAY ==
[2024-12-10] VITALS (19 sets, daily range): BP systolic 96–172; BP diastolic 42–111; BMI 44.2
--- NOTE | 2024-12-10 10:13 | ED.GENMED ---
History of Present Illness
<Evans Bass PA-C - Last Filed: 12/10/24 15:02>
General
Chief Complaint: Chest Pain
Time Seen by Provider: 12/10/24 10:04
History of Present Illness
History of Present Illness:
69-year-old female with history of paroxysmal A-fib on Eliquis, coronary artery disease status post SD, hypertension, and hyperlipidemia presents to the emergency department for evaluation of chest pain and pleuritic discomfort beginning yesterday
associated with recurrent A-fib. Notes that her heart rates have varied between 120 and 140. Denies any associated dizziness, nausea, or vomiting. No recent fevers or chills. No recent leg swelling. Has been compliant with her anticoagulants
and also took an additional dose of beta-sonia yesterday with no effect
Past History
<Evans Bass PA-C - Last Filed: 12/10/24 15:02>
Past History
ED Past Medical History: GERD (Hiatal hernia ), HTN, Valvular disease (Heart murmur ), Hypothyroidism and Other (Questionable common bile duct stone status post ERCP done at [place] March 2006 )
ED Past Surgical History: Cardiac (Ventriculoseptal defect repair at age 6 , radiofrequency ablation 2004 ), Cholecystectomy (1986 ) and Gynecological (Hysterectomy 2005 )
Social History
Tobacco: Non-smoker
Alcohol: Occasional
Drug: None
Personal:
Living: with family
Employment: Employed
Review of Systems
<Evans Bass PA-C - Last Filed: 12/10/24 15:02>
Review of Systems
Allergies reviewed?: Yes
All Other Systems: ROS reviewed and negative except as documented in HPI and ROS
Phy Exam
<Evans Bass PA-C - Last Filed: 12/10/24 15:02>
Physical Exam
Physical Exam:
GEN: Well appearing, NAD, WDWN
HEENT: Oral mucosa moist, no scleral icterus
Cardiac: Tachycardic, regular, no murmur
Lung: No respiratory distress, no tachypnea, lungs clear to auscultation bilaterally
MSK: No gross deformity or injuries
Skin: Good color, no pallor or jaundice, no rashes
Neuro: AO x3, moves all extremities freely
Psych: Calm, cooperative
Scores
<Evans Bass PA-C - Last Filed: 12/10/24 15:02>
Heart Score for Chest Pain Patients
STEMI patient?: Not applicable
Course
<Evans Bass PA-C - Last Filed: 12/10/24 15:02>
Orders/Labs/Results
Orders:
Orders
12/10/24 09:22
ECG [Electrocardiogram (*1)] Urgent
Reason for Study: Chest Pain
EKG- Treatment ONCE
12/10/24 10:12
Diltiazem HCl [Cardizem] 20 mg IV NOW STA
12/10/24 10:13
CR Chest - 2 Views Urgent
Comment:
Reason For Exam: chest pain/SOB
12/10/24 10:15
Diltiazem 125 mg/125 ml Nss [Cardizem] 125 mg in 125 ml IV PER PROTOCOL
Initial dose in mg/hr, then titrate:: 5
Titrate to keep:: Heart rate 80-100 bpm
Titrate by mg/hr:: 5 mg/hr
Frequency of titrations (minutes):: 15
Maximum dose in mg/hr:: 15
12/10/24 11:29
EKG [Electrocardiogram (*1)] Urgent
Reason for Study: Chest Pain
EKG- Treatment ONCE
12/10/24 11:45
Basic Metabolic Panel Urgent
Complete Blood Count/With Diff Urgent
NT-proBNP Urgent
Troponin I Urgent
12/10/24 12:06
Diltiazem HCl [Cardizem] 20 mg IV NOW STA
12/10/24 13:07
Propofol [Diprivan] 20 ml .ROUTE .STK-MED
Abnormal Lab Results
12/10/24
11:45
MCHC 32.8 L g/dL
(33.0-37.0)
Absolute Neuts (auto) 8.0 H 10^3/uL
(1.4-6.5)
Absolute Monos (auto) 0.7 H 10^3/uL
(0.1-0.6)
Neutrophils % 77.0 H %
(42.2-75.2)
Lymphocytes % 13.8 L %
(20.5-51.1)
Glucose 120 H mg/dl
(70-99)
12/10/24 11:45
12/10/24 11:45
Vital Signs
Initial and Last Documented VS:
Initial Vital Signs
Temp Pulse Resp Pulse Ox
97.5 F 140 20 97
12/10/24 09:18 12/10/24 09:18 12/10/24 09:18 12/10/24 09:18
Last Documented Vital Signs
Temp Pulse Resp BP Pulse Ox
98.1 F 72 16 103/63 96
12/10/24 14:32 12/10/24 14:32 12/10/24 14:10 12/10/24 14:10 12/10/24 14:32
<Sonny Bush MD - Last Filed: 12/10/24 15:36>
Orders/Labs/Results
Orders:
Orders
12/10/24 09:22
ECG [Electrocardiogram (*1)] Urgent
Reason for Study: Chest Pain
EKG- Treatment ONCE
12/10/24 10:12
Diltiazem HCl [Cardizem] 20 mg IV NOW STA
12/10/24 10:13
CR Chest - 2 Views Urgent
Comment:
Reason For Exam: chest pain/SOB
12/10/24 10:15
Diltiazem 125 mg/125 ml Nss [Cardizem] 125 mg in 125 ml IV PER PROTOCOL
Initial dose in mg/hr, then titrate:: 5
Titrate to keep:: Heart rate 80-100 bpm
Titrate by mg/hr:: 5 mg/hr
Frequency of titrations (minutes):: 15
Maximum dose in mg/hr:: 15
12/10/24 11:29
EKG [Electrocardiogram (*1)] Urgent
Reason for Study: Chest Pain
EKG- Treatment ONCE
12/10/24 11:45
Basic Metabolic Panel Urgent
Complete Blood Count/With Diff Urgent
NT-proBNP Urgent
Troponin I Urgent
12/10/24 12:06
Diltiazem HCl [Cardizem] 20 mg IV NOW STA
12/10/24 13:07
Propofol [Diprivan] 20 ml .ROUTE .STK-MED
Abnormal Lab Results
12/10/24
11:45
MCHC 32.8 L g/dL
(33.0-37.0)
Absolute Neuts (auto) 8.0 H 10^3/uL
(1.4-6.5)
Absolute Monos (auto) 0.7 H 10^3/uL
(0.1-0.6)
Neutrophils % 77.0 H %
(42.2-75.2)
Lymphocytes % 13.8 L %
(20.5-51.1)
Glucose 120 H mg/dl
(70-99)
12/10/24 11:45
12/10/24 11:45
Vital Signs
Initial and Last Documented VS:
Initial Vital Signs
Temp Pulse Resp Pulse Ox
97.5 F 140 20 97
12/10/24 09:18 12/10/24 09:18 12/10/24 09:18 12/10/24 09:18
Last Documented Vital Signs
Temp Pulse Resp BP Pulse Ox
98.1 F 72 16 103/63 96
12/10/24 14:32 12/10/24 14:32 12/10/24 14:10 12/10/24 14:10 12/10/24 14:32
Procedures
<Evans Bass PA-C - Last Filed: 12/10/24 15:02>
Cardioversion
Indication:: Afib
Performed by:: Evans Bass PA-C; Sonny Bush DO
Synchronized?: Yes
Energy Used: 200 joules
Number of attempts: 1
Successful?: Yes
ASA Risk Score: Class III
Any reaction or bad outcome to prior sedation/anesthesia?: No history of a reaction
Sedation level to be attained: moderate
Chart and allergies reviewed: Yes
Patient reassessed prior to sedation: Yes
Time out completed at (validating right patient & procedure): 13:34
History of difficult intubation: No
Airway free of obstruction: Yes
Patient has a gag reflex: Yes
Patient is able to open mouth: Yes
Patient has no dentures: Yes
Patient has no loose teeth: Yes
Medication administered by Provider during Moderate Sedation: IV Propofol (mg)
Total dose administered: 40
Time drug administered: 13:35
Start Time: 13:35
Stop Time: 13:45
IV Access
Indication: RN unable to obtain
Performed by:: Evans Bass PA-C
Site:: L forearm
Gauge:: 20g
Complications: Unsuccessful
Ultrasound Guidance: Yes
<Evans Bass PA-C - Last Filed: 12/10/24 15:02>
MDM/Problems Addressed
MDM/Problems Addressed:
Patient was initially rate controlled well with IV Cardizem however rapidly returned to a tachyarrhythmia. Given that her symptoms were correlating with the tacky dysrhythmia the decision was made to cardiovert the patient. Initially a diltiazem
infusion was ordered however this was held due to the decision to cardiovert. Cardioversion was successful with no adverse events, recommend outpatient cardiology follow-up
<Evans Bass PA-C - Last Filed: 12/10/24 15:02>
Comment
Comment:
EKG independently interpreted by me shows a narrow complex tachycardia at a rate of 138, most likely representing 2-1 atrial flutter, no ischemic changes
*Pulse Oximetry
SaO2: 97
Oxygen Mode of Delivery: Room air
Patient hypoxic: no
*Critical Care Note
Total Time (30-74mins, 75-104mins- exclusive of procedures): Not Applicable
<Sonny Bush MD - Last Filed: 12/10/24 15:36>
*Critical Care Note
Total Time (30-74mins, 75-104mins- exclusive of procedures): 40 min
ED Attending Note
<Evans Bass PA-C - Last Filed: 12/10/24 15:02>
-
Portions of this chart may have been created with voice recognition software.� Occasional wrong word or��sound alike� substitutions may have occurred due to the inherent limitations of voice recognition software.
<Sonny Bush MD - Last Filed: 12/10/24 15:36>
ED Attending Note
Patient seen and examined by attending physician: Yes
ED Attending Note:
Patient with history of paroxysmal atrial fibrillation on Eliquis, presents to ED secondary to continual right shoulder/right sided chest pain since yesterday afternoon. In addition, patient noticed that she was back in atrial fibrillation rhythm,
with increased heart rate, due to palpitations along with her [employer]. Denies shortness of breath. Denies dizziness. Denies nausea or vomiting. Patient has had similar symptoms in the past, requiring cardioversion. Denies fever or chills.
Denies recent illness. Denies recent change in medications or diet.
Physical Exam
General: mild distress, not acutely ill. afebrile
Head: nc/at. eomi
Neck: supple. no meningeal signs.
Heart: regular but tachycardic.
Lungs: no acute respiratory distress. clear bilaterally
Abdomen: normal bowel sounds. not tender.
Neuro: alert and oriented x 3. no focal neurological deficits
Skin: no rash
Psychiatric: well kept. interactive and cooperative
Extremities: no edema. no calf tenderness.
History and exam concerning for recurrent atrial fibrillation/flutter. Initial Cardizem bolus did lower the heart rate, but only temporarily, with continual chest pain/discomfort. As such, after discussion, decision made to perform cardioversion.
Procedure consent on the chart.
Cardioversion successful after administration of propofol with application of 200 J. Repeat EKG confirms sinus rhythm. Patient reports near resolution of chest pain/discomfort after cardioversion. As such, decision made to discharge patient home,
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 Patient advised to continue Eliquis, including dose tonight. Patient otherwise is afebrile,
hemodynamically stable, and appears comfortable, at time of discharge.
Critical care statement: A total of 40 minutes of critical care time was provided for this patient. This includes management of unstable vital signs, evaluation of the patient at bedside, reviewing the patient's pertinent medical records, review of
old EKGs and review of pertinent medical records. This time with separate from time utilized to perform the aforementioned documented procedures
Discharge Plan
Departure
Patient Disposition: Home (Routine Discharge)
Date of Disposition: 12/10/24
Time of Disposition: 14:10
Patient with high blood pressure during this ER visit?: No
Discharge Problem:
Atrial fibrillation with RVR
Instructions: Atrial fibrillation (DC), MODERATE SEDATION ADULT
Prescriptions:
No Action
levothyroxine 125 MCG tablet
125 mcg PO DAILY
Metamucil Fiber (aspartame) 1 PACKET powder in packet
1 packet PO HS
atorvastatin 40 MG tablet
40 mg PO HS
cyanocobalamin (vitamin B-12) 1,000 MCG tablet
1,000 mcg PO BID
cholecalciferol (vitamin D3) [Vitamin D3] 50 mcg (2,000 unit) Tablet
50 mcg PO QPM Qty: 0
potassium chloride 20 mEq Tablet,Er Particles/Crystals
20 meq PO QPM
furosemide 20 MG tablet
20 mg PO DAILY
therapeutic multivitamin Tablet
1 tab PO DAILY
ferrous sulfate [FeroSul] 325 mg (65 mg iron) tablet
325 mg PO DAILY
diphenhydramine-acetaminophen [Acetaminophen PM] 25-500 mg Tablet
2 tab PO HSPRN PRN (Reason: SLEEP)
Eliquis 5 mg Tablet
5 mg PO BID
propranolol 20 mg tablet
20 mg PO DAILY
lisinopril 2.5 mg Tablet
2.5 mg PO DAILY
Referrals:
Freedom Connors MD [Family Provider, Family Practice]
Activity Restrictions/Additional Instructions:
Follow up with your primary antenna machine operator
Interventions
Interventions:
*Risk Screen - Suicide Last Done: 12/10/24 09:18
*General Assessment Last Done: 12/10/24 09:18
*Neglect/Abuse Screening Last Done: 12/10/24 10:00
*ED- Fall Risk Assessment Last Done: 12/10/24 10:00
*Nursing Disposition Last Done: 12/10/24 14:32
ED- Cardiac Assessment Last Done: 12/10/24 13:44
Discharge Date and Time
Discharge Date/Time: 12/10/24 14:32
Print Language: BENGALI
[2024-12-10] MEDS: CARDIZEM 20 MG IV ×2 (11:21→12:49)
[2024-12-10 12:07] LABS: Hematocrit 40.9 % (37.0-47.0); Hemoglobin 13.4 g/dL (12.0-16.0); Mean Corp Hgb Conc. 32.8 g/dL (33.0-37.0); Mean Corpuscular Volume 94.0 fL (81.0-99.0); Nucleated Red Blood Cells % 0 %; Platelet Count 257 10^3/uL (130-400); Red Cell Dist. Width 12.9 % (11.5-14.5)
[2024-12-10 12:40] LABS: Troponin I 0.015 ng/ml
[2024-12-10 12:54] LABS: Blood Urea Nitrogen 14 mg/dl (7-17); Calcium 9.2 mg/dl (8.4-10.2); Carbon Dioxide 26 mmol/L (22-30); Chloride 106 mmol/L (98-107); Estimated Creatinine Clearance 88 ml/min; Glucose 120 mg/dl (70-99); Sodium 139 mmol/L (135-145); eGFR > 60.00
== END 2024-12-10 14:32 | disposition home or self-care (01) ==
LOC: EMR 09:17
PROVIDERS: Physician Assistant; EMERGENCY PHYSICIAN Emergency Medicine; FAMILY PHYSICIAN Family Medicine
DX: I48.91 Unspecified atrial fibrillation (principal); I25.10 Atherosclerotic heart disease of native coronary artery without angina pectoris; E03.9 Hypothyroidism, unspecified; E78.5 Hyperlipidemia, unspecified; I25.2 Old myocardial infarction; Z79.01 Long term (current) use of anticoagulants
CPT/HCPCS: 92960; 99152; 99291; 96374; 96376; 71046; 80048; 83880; 84484; 85025; 93005

== ENCOUNTER → 2025-01-20 10:09 | Outpatient (REF) | payer MEDICARE, OTHER, SELFPAY ==
[2025-01-20 11:19] LABS: Hematocrit 39.7 % (37.0-47.0); Hemoglobin 12.9 g/dL (12.0-16.0); Mean Corp Hgb Conc. 32.5 g/dL (33.0-37.0); Mean Corpuscular Volume 94.3 fL (81.0-99.0); Nucleated Red Blood Cells % 0 %; Platelet Count 254 10^3/uL (130-400); Red Cell Dist. Width 12.5 % (11.5-14.5)
[2025-01-20 11:34] LABS: ALT (SGPT) 19 U/L (0-35); AST (SGOT) 19 U/L (14-36); Albumin 4.5 g/dl (3.5-5.0); Alkaline Phosphatase 100 U/L (38-126); Blood Urea Nitrogen 16 mg/dl (7-17); Calcium 9.3 mg/dl (8.4-10.2); Carbon Dioxide 24 mmol/L (22-30); Chloride 104 mmol/L (98-107); Glucose 106 mg/dl (70-99); Potassium 4.8 mmol/L (3.5-5.1); Sodium 135 mmol/L (135-145); Total Protein 7.2 g/dl (6.3-8.2); eGFR > 60.00
== END ==
LOC: SDSPAT 10:09
PROVIDERS: ATTENDING PHYSICIAN Internal Medicine Cardiovascular Disease; FAMILY PHYSICIAN Family Medicine; OTHER PHYSICIAN Internal Medicine
DX: I48.0 Paroxysmal atrial fibrillation (principal)
CPT/HCPCS: 36415; 80053; 85025; 86850; 86900; 86901

== ENCOUNTER 2025-02-03 07:52 | Day surgery (SDC) | payer MEDICARE, OTHER, SELFPAY ==
[2025-01-20 10:31] VITALS: BMI 44.0
[2025-02-03] VITALS (13 sets, daily range): BP systolic 110–157; BP diastolic 55–74
[2025-02-03 11:01] LABS: ACT-LR - POC 294 Seconds (116-155)
[2025-02-03 11:21] LABS: ACT-LR - POC 327 Seconds (116-155)
[2025-02-03 11:43] LABS: ACT-LR - POC 392 Seconds (116-155)
[2025-02-03 12:04] LABS: ACT-LR - POC 343 Seconds (116-155)
--- NOTE | 2025-02-03 12:31 | ITS.CL.ABL ---
L[facility] Specialist - Ablation
Ablation
Procedure Report:
AFIB / flutter ablation:
Ms. Aguilar is a very pleasant 69 yr old woman with symptomatic paroxysmal AF and atrial flutters, is recommended for atrial fibrillation ablation.
Date of the Procedure:
02/03/25
Indications:
Paroxysmal atrial fibrillation / atrial flutter
Pre-Operative Diagnosis:
Paroxysmal atrial fibrillation / atrial flutter
Post-Operative Diagnosis:
Paroxysmal atrial fibrillation / atrial flutter
Procedure Performed:
Atrial fibrillation ablation with Pulsed-Field approach for pulmonary vein isolation
Roof dependent atrial flutter ablation
Posterior wall isolation
Mitral flutter ablation
Performing Physician:
Vishal Anand MD
Assistants:
EP staff
Anesthesia:
See anesthesia records
Detailed Description of the Procedure:
Written informed consent was obtained from the patient after a full explanation of the risks and benefits of the procedure including the risks of sedation and anesthesia.
The patient was brought to the electrophysiology laboratory in stable condition in fasting state. Continuous electrocardiographic and hemodynamic monitoring was initiated.
The initial rhythm was atrial paced.
The procedure site was meticulously prepared with surgical scrub and allowed to dry with no pooling. Sterile draping was applied to cover the procedure site. The image intensifier was draped with sterile bag and positioned over the patient. After
infusion of local anesthetic, vascular access was obtained under ultrasound guidance and sheaths were placed over guide wire as detailed below.
Sheath and Catheter Placement:
The following catheters / sheaths were placed
Sheaths:
17Fr steerable sheath (Faradrive�, [employer]) in right femoral
9Fr in right femoral vein
Catheters:
Farawave� PFA catheter
ICE catheter -AcuNav - at locations of RA, SVC, and RV.
Intracardiac ECHO:
An 8-Italian AcuNav intracardiac ECHO (ICE) probe was advanced through the 9-Italian sheath in the right femoral vein into the right atrium under fluoroscopic and ICE ultrasound image guidance and a baseline ECHO study was performed. The left atrial
size was dilated. There was moderate tricuspid regurgitation. The aortic valve was grossly normal. There was normal left ventricular systolic functions. There is trace pericardial effusion. All the four veins were identified and has flow identified.
There was good flow noted in the JOYCE. The LA was severely dilated.
During the procedure, ICE was used for monitoring of complications, guidance of trans-septal puncture, monitor the catheter position and tracking ablation lesions. No change in the pericardial space noted throughout the procedure.
Trans-septal Puncture:
Heparin was initiated and infused to maintain appropriate ACT. A pigtail guidewire was advanced through the 8-Italian sheath in the right femoral vein into the superior vena cava under fluoroscopic and ICE guidance. The 8-Italian sheath was exchanged
for a Faradrive sheath which was advanced into the superior vena cava. A transseptal VersaCross RF pigtail via Faradrive connect system was utilized to perform the trans-septal puncture. The apparatus was withdrawn until it was in contact with the
fossa ovalis. The position was adjusted based on fluoroscopy and ultrasound images from ICE. Under fluoroscopic, hemodynamic and ICE ultrasound guidance, left atrium was cannulated by applying RF energy. Once atrial septum was cannulated, the
pigtail wire was advanced into the left atrium. The guide wire was advanced into the left superior pulmonary vein. Both the sheath and the dilator was advanced into the left atrium. The dilator with the needle was withdrawn. Blood was aspirated from
the Faradrive sheath and arterial blood confirmed. The sheath was flushed. Saline injection noted into the left atrium on ICE. The mapping catheter was advanced in the sheath into the left pulmonary vein. Left atrial pressure was measured.
3D Electroanatomic Mapping:
Using the Farawave catheter advanced through sheath into the left atrium, an electroanatomic map (EAM) of the left atrium was created using [employer] mapping system. The map was used for localization of catheter position and tacking of
ablation lesions.
The EAM of the left atrium showed 4 pulmonary veins with all 4 veins electrically connected to the body the LA. It showed normal voltage on the posterior and anterior wall of the LA. The LA was mildly dilated in size.
Following the EAM, preparation were made for ablation.
Ablation:
Ablation # 1: Pulmonary vein Isolation:
Glycopyrrolate was not given as pt has pacemaker working normally.
Using Farawave pulsed field ablation system, pulmonary vein isolation was achieved. First the ablation catheter was placed in the LSPV and ostial ablation lesions were performed in an �[place]� formation of the Farawave configuration and a counter
clock rodriguez rotation was done and ablated to cover the area between the electrodes. Then the catheter was placed on the antral location in �[place]� configuration and multiple ablation lesions were placed circumferentially on the antrum of the vein.
In the similar fashion, the LIPV were isolated.
Then the catheter was moved to right sided veins. The ostial and antral ablations were placed as noted above.
While mapping the left atrium post ablation, patient spontaneously went into atrial flutter which appeared to be atypical at 270 ms cycle length.
The left atrium was mapped and the flutter was thought to be roof dependent.
Ablation #2: Roof dependent flutter ablation
Patient had hx of atrial flutter and the rhythm was switching from AF to FL to AF during the case. The flutter was coming from the LA.
This was consistent with roof dependent atrial flutter regla with extensive scar on the posterior wall and channels conduction on the posterior wall.
Using the pulsed field ablation catheter, the catheter was placed between left superior pulmonary vein and right severe pulmonary vein with series of overlapping ablation lesions placed.
Ablation # 3: Posterior wall isolation:
Using the pulsed field ablation catheter, the catheter was placed on the posterior wall and moved around the posterior wall to have adequate contact and ablations were placed isolating the posterior wall.
The flutter changed but maintained in the left atrium with a cycle length of 260 to 290 ms.
Before this flutter could be mapped in detail, it degenerated into atrial fibrillation.
Ablation #4: Mitral flutter ablation
The flutter was thought to be mitral flutter revolving around the mitral valve. Decision was made to create a line of block at the mitral isthmus to avoid mitral isthmus dependent flutters.
A series of ablations were placed on the anterior wall at the mouth of left atrial appendage and connecting it to the roofline and to mitral annulus anteriorly.
Cardioversion:
Once the PV isolation was achieved, decision was made to proceed with cardioversion. A 200 J biphasic shock was applied on the selwyn posterior Zoll patches and sinus rhythm was achieved. No significant pause noted.
EPS and Confirmation of the PVI and bidirectional block:
Following achievement of entrance block at the pulmonary veins, pacing from the HD catheter in each of the four veins at 10 milliamps for 2 milliseconds showed entrance and exit block. All PVI were rechecked at the end of the case and remained
isolated. Entrance and exit block were demonstrated in all veins.
Post ablation Electroanatomic mapping:
Once ablation was completed, the EAM of the LA was done again in sinus rhythm with excellent demarcation of LA myocardium and isolated antral tissue.
The JOYCE had healthy signals and was not isolated. The CS was paced and the block across the mitral isthmus demonstrated.
Procedure End
ICE study was done again that showed no epicardial accumulation. No complications noted.
Following the completion of the EP study, catheters were removed. Protamine 40 mg was given at the end of the procedure and ACT was checked repeatedly. The sheaths were removed and hemostasis achieved with �Figure of 8� and manual compression after
acceptable ACT is achieved.
Left atrial Pressure:
Pre-Mean LA pressure was 8mmHg
Post-Mean LA pressure was 15mmHg
Post -Mean RA pressure was 8 mmHg.
Estimated Blood loss:
<10 cc
Specimens Removed:
None.
Implants / Devices:
None
Urine output:
None
Packs / Drains/ Tubes:
None
Instrument / Sponge Count Correct:
Yes
Complications of the Procedure:
None
Condition of Patient at Time of Transfer:
Hemodynamically stable with no neurological or vascular compromise.
Summary:
Successful atrial fibrillation ablation with Pulsed Field approach for pulmonary vein isolation, roof dependent flutter ablation, posterior wall isolation and Mitral flutter ablation.
Figures from the Procedure:
Figure 1: The electroanatomic mapping (EAM) of the left atrium with bipolar voltage (purple indicates normal electrical activity with rivers as no myocardial muscle electric activity indicating a line of block or scar.
[2025-02-03] MEDS: ZESTRIL 2.5 MG PO (15:53)
[2025-02-03] MEDS: TYLENOL 650 MG PO (15:53)
--- NOTE | 2025-02-03 16:55 | W.PN.UPDATE ---
Update Note
Progress Note Update
69 yo WF s/p PVI (same day). She denies cp, sob, du clears, voiding, mildly lightheaded when initially ambulating, R fem site c/d/i no HT, EKG Apaced. She will resume Eliquis tonight and continue propranolol. Activity restrictions reviewed. 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 She is for d/c home after 5pm.
== END 2025-02-03 17:20 | disposition home or self-care (01) ==
LOC: CATH 07:52
PROVIDERS: ATTENDING PHYSICIAN Internal Medicine Cardiovascular Disease; FAMILY PHYSICIAN Family Medicine; OTHER PHYSICIAN Internal Medicine
DX: I48.0 Paroxysmal atrial fibrillation (principal); I48.92 Unspecified atrial flutter; I45.2 Bifascicular block; I25.10 Atherosclerotic heart disease of native coronary artery without angina pectoris; Z88.5 Allergy status to narcotic agent; E66.01 Morbid (severe) obesity due to excess calories; Z68.41 Body mass index [BMI] 40.0-44.9, adult; Z79.01 Long term (current) use of anticoagulants; Z79.890 Hormone replacement therapy; Z79.899 Other long term (current) drug therapy
CPT/HCPCS: C1894; C1769; C1892; C1759; 85347; 93005; 93655; 93656; 93657; C1733; C1766